=== PATIENT | male | born 1955 | race African-American/Black ===

== ENCOUNTER 2018-04-25 22:54 | Inpatient (IN) | payer MEDICAID ==
[~2018-04-25] VITALS: Ht 167.6 cm; Wt 58.3 kg
[2018-04-25] MEDS ORDERED: ASPIRIN 81MG TABLET PO ONE (23:45)
[2018-04-26] VITALS (12 sets, daily range): BP systolic 117–180; BP diastolic 22–113
[2018-04-26 00:13] LABS: CHLORIDE 103 mEq/L (98-107)
[2018-04-26 00:14] LABS: BASOPHILS % 1.3 % (0.0-2.0); HEMATOCRIT. 36.3 % (42.0-52.0); HEMOGLOBIN. 11.9 g/dL (14.0-18.0); LYMPHOCYTES % 21.7 % (20.0-50.0); MEAN CORPUSCULAR VOLUME 103.5 fL (80.0-94.0); MEAN PLATELET VOLUME 8.7 fl (7.4-10.4); MONOCYTES % 9.6 % (2.0-8.0); NEUTROPHILS % 65.4 % (40.0-76.0); PLATELET 135 x1000/uL (130-400); RED BLOOD CELL COUNT 3.51 mill/uL (4.7-6.1); RED CELL DISTRIBUTION WIDTH 14.7 % (11.6-14.6)
[2018-04-26 00:17] LABS: PARTIAL THROMBOPLASTIN TIME 24.7 sec (23.4-31.0); PROTHROMBIN TIME 10.7 sec (9.4-11.6)
[2018-04-26] MEDS ORDERED: HEPARIN 25,000 UNITS PREMIX 500 ML IV PRN (01:15)
[2018-04-26] MEDS ORDERED: HEPARIN 5000 UNITS/ML VIAL IV PRN ×2 (01:15)
[2018-04-26] MEDS ORDERED: HEPARIN 5000 UNITS/ML VIAL IV SCH (01:15)
[2018-04-26] MEDS ORDERED: CALCIUM CHLORIDE 1GM/10ML SYR IV NR (01:30)
[2018-04-26] MEDS ORDERED: INSULIN REGULAR (HUMULIN R) 300UNITS/3ML IV NR (01:30)
[2018-04-26] MEDS ORDERED: SODIUM BICARBONATE 8.4% 1 MEQ/ML 50ML SYR IV NR (01:30)
[2018-04-26] MEDS ORDERED: DEXTROSE 50% WATER 50ML SYRINGE IV ONE (01:30)
[2018-04-26] MEDS ORDERED: DEXTROSE 50% WATER 50ML SYRINGE IV NR (01:45)
[2018-04-26] MEDS ORDERED: GUAIFENESIN 200MG/10ML SUGAR FREE UDC PO PRN (03:45)
[2018-04-26] MEDS ORDERED: DOCUSATE SODIUM 100MG CAPSULE PO PRN (03:45)
[2018-04-26] MEDS ORDERED: IPRATROPIUM/ALBUTEROL 0.5-3(2.5)MG/3ML NEB INH PRN (03:45)
[2018-04-26] MEDS ORDERED: ONDANSETRON 4MG ODT PO PRN (03:45)
[2018-04-26] MEDS ORDERED: HYDROCODONE/ACETAMINOPHEN 5/325MG TABLET PO PRN (03:45)
[2018-04-26] MEDS ORDERED: ACETAMINOPHEN 325MG TABLET PO PRN (03:45)
[2018-04-26] MEDS ORDERED: CLONIDINE 0.1MG TABLET PO PRN (03:45)
[2018-04-26] MEDS: ASPIRIN 81MG EC TABLET PO SCH (08:17)
[2018-04-26] MEDS: AMLODIPINE 10MG TABLET PO SCH (08:17)
[2018-04-26] MEDS ORDERED: ONDANSETRON HCL 4MG/2ML VIAL IV PRN (08:30)
[2018-04-27] VITALS (11 sets, daily range): BP systolic 129–167; BP diastolic 81–106
[2018-04-27 05:56] LABS: EOSINOPHILS % 4.1 % (0.0-5.0); HEMATOCRIT. 35.9 % (42.0-52.0); HEMOGLOBIN. 11.5 g/dL (14.0-18.0); LYMPHOCYTES % 24.4 % (20.0-50.0); MEAN CORPUSCULAR HEMOGLOBIN 33.1 pg (28.0-32.0); MEAN CORPUSCULAR VOLUME 103.7 fL (80.0-94.0); MEAN PLATELET VOLUME 10.7 fl (7.4-10.4); MONOCYTES % 8.6 % (2.0-8.0); NEUTROPHILS % 61.9 % (40.0-76.0); PLATELET 84 x1000/uL (130-400); RED BLOOD CELL COUNT 3.46 mill/uL (4.7-6.1); RED CELL DISTRIBUTION WIDTH 14.6 % (11.6-14.6)
[2018-04-27 06:04] LABS: CHLORIDE 104 mEq/L (98-107)
[2018-04-27] MEDS: ASPIRIN 81MG EC TABLET PO SCH (08:15)
[2018-04-27] MEDS: AMLODIPINE 10MG TABLET PO SCH (08:16)
[2018-04-27 09:10] LABS: ABSOLUTE BASOPHILS 0.1 x10E3/uL (0.0-0.2); ABSOLUTE EOSINOPHILS 0.1 x10E3/uL (0.0-0.4); ABSOLUTE LYMPHOCYTES 1.6 x10E3/uL (0.7-3.1); ABSOLUTE MONOCYTES 0.5 x10E3/uL (0.1-0.9); ABSOLUTE NEUTROPHILS 4.3 x10E3/uL (1.4-7.0); BASOPHILS 1 % (Not Estab.); HEMATOCRIT 36.8 % (37.5-51.0); HEMOGLOBIN 11.5 g/dL (13.0-17.7); IMMATURE GRANULOCYTES 0 % (Not Estab.); LYMPHOCYTES 24 % (Not Estab.); MEAN CORPUSCULAR HEMOGLOBIN 32.2 pg (26.6-33.0); MEAN CORPUSCULAR HGB CONC. 31.3 g/dL (31.5-35.7); MEAN CORPUSCULAR VOLUME 103 fL (79-97); MONOCYTES 7 % (Not Estab.); NEUTROPHILS 66 % (Not Estab.); PLATELETS 146 x10E3/uL (150-379); RBC 3.57 x10E6/uL (4.14-5.80); RED CELL DISTRIBUTION WIDTH 14.2 % (12.3-15.4); WBC 6.6 x10E3/uL (3.4-10.8)
[2018-04-27] MEDS ORDERED: HEPARIN SODIUM 1,000 UNIT/1ML VIAL IV ONE (09:30)
[2018-04-27 13:11] LABS: % CD 3 POS. LYMPHOCYTES 86.6 % (57.5-86.2); % CD 4 POS. LYMPHOCYTES 26.4 % (30.8-58.5); % CD 8 POS. LYMPH 59.8 % (12.0-35.5); ABSOLUTE CD 3 1386 /uL (622-2402); ABSOLUTE CD 4 HELPER 422 /uL (359-1519); ABSOLUTE CD 8 SUPPRESSOR 957 /uL (109-897); CD4/CD8 RATIO 0.44 (0.92-3.72)
== END 2018-04-27 18:40 | disposition home or self-care (01) | DRG 194 ==
LOC: ER 22:54 → EDBD 04-26 01:18 → 3WST 04-26 01:18 → EDBEDREQTM 04-26 01:21 → EDBEDREQSVC 04-26 01:21 → EDBEDREQ 04-26 01:21 → ENRESERV 04-26 01:33 → 3WST 04-26 04:09
PROVIDERS: ADMIT Hospitalist; ATTEND Hospitalist
PROC: 5A1D70Z Performance of Urinary Filtration, Intermittent, Less than 6 Hours Per Day (ICD-10-PCS; principal; 2018-04-26)
PROC: 5A1D70Z Performance of Urinary Filtration, Intermittent, Less than 6 Hours Per Day (ICD-10-PCS; 2018-04-27)
DX: I13.2 Hypertensive heart and chronic kidney disease with heart failure and with stage 5 chronic kidney disease, or end stage renal disease (principal); I21.4 Non-ST elevation (NSTEMI) myocardial infarction; E43 Unspecified severe protein-calorie malnutrition; I50.33 Acute on chronic diastolic (congestive) heart failure; N18.6 End stage renal disease; E87.5 Hyperkalemia; F19.10 Other psychoactive substance abuse, uncomplicated; J44.9 Chronic obstructive pulmonary disease, unspecified; Z99.2 Dependence on renal dialysis; Z82.49 Family history of ischemic heart disease and other diseases of the circulatory system; Z68.20 Body mass index [BMI] 20.0-20.9, adult; Z91.15 Patient's noncompliance with renal dialysis; Z21 Asymptomatic human immunodeficiency virus [HIV] infection status
CPT/HCPCS: 36415; 71045; 80053; 83605; 83880; 84484; 85025; 85610; 85730; 86359; 86360; 87040; 93005; 93970; 96374; 99291; J1644; J1815; J2405; J3490; J7030; Q0162

== ENCOUNTER 2018-06-22 21:10 | Inpatient (IN) | payer MEDICAID ==
[~2018-06-22] VITALS: Ht 170.2 cm; Wt 69.4 kg
[2018-06-23] VITALS (8 sets, daily range): BP systolic 161–196; BP diastolic 91–122
[2018-06-23 01:28] LABS: BASOPHILS % 0.6 % (0.0-2.0); EOSINOPHILS % 0.5 % (0.0-5.0); HEMATOCRIT. 36.1 % (42.0-52.0); HEMOGLOBIN. 11.6 g/dL (14.0-18.0); MEAN CORPUSCULAR HEMOGLOBIN 32.9 pg (28.0-32.0); MEAN CORPUSCULAR VOLUME 102.9 fL (80.0-94.0); MEAN PLATELET VOLUME 9.2 fl (7.4-10.4); MONOCYTES % 5.7 % (2.0-8.0); NEUTROPHILS % 80.2 % (40.0-76.0); PLATELET 170 x1000/uL (130-400); RED BLOOD CELL COUNT 3.51 mill/uL (4.7-6.1); RED CELL DISTRIBUTION WIDTH 15.3 % (11.6-14.6)
[2018-06-23 01:31] LABS: CHLORIDE 100 mEq/L (98-107)
[2018-06-23 01:40] LABS: ETHANOL BLOOD < 10 mg/dL
[2018-06-23] MEDS ORDERED: SODIUM POLYSTYRENE SULFONATE 15 G/60 ML BOT PO ONE (02:45)
[2018-06-23] MEDS ORDERED: ALBUTEROL (0.083%) 2.5MG/3ML NEB HHN ONE (02:45)
[2018-06-23] MEDS ORDERED: ONDANSETRON HCL 4MG/2ML INJ IV PRN (09:15)
[2018-06-23] MEDS ORDERED: ACETAMINOPHEN 650MG SUPP PR PRN (09:15)
[2018-06-23] MEDS ORDERED: ACETAMINOPHEN 325MG TABLET PO PRN (09:15)
[2018-06-23] MEDS ORDERED: ACETAMINOPHEN 650MG/20.3ML UDC GT PRN (09:15)
[2018-06-23] MEDS ORDERED: IPRATROPIUM/ALBUTEROL 0.5-3(2.5)MG/3ML NEB INH PRN (09:15)
[2018-06-23] MEDS ORDERED: MAGNESIUM/ALUMINUM HYDROXIDE/SIMETHICONE 30ML UDC PO PRN (17:00)
[2018-06-23 17:55] LABS: BG BASE EXCESS -8.5 mmol/L (-2.0-2.0); BG CARBOXYHEMOGLOBIN 0.9 % (0.5-1.5); BG DEOXYHEMOGLOBIN 6.2 % (0.0-5.0); BG HCO3 ACT 19.5 mmol/L (22.0-26.0); BG METHEMOGLOBIN 0.5 % (0.0-1.5); BG OXYGEN SATURATION 93.7 % (92.0-98.5); BG OXYHEMOGLOBIN 92.4 % (94.0-97.0); BG PCO2 50.5 mmHg (35.0-45.0); BG PH 7.204 (7.350-7.450); BG PO2 87.5 mmHg (75.0-100.0); BG SAMPLE SITE RIGHT RADIAL; BG TOTAL HEMOGLOBIN 12.2 g/dL (12.0-18.0); BG VENT MODE NASAL CANNULA
[2018-06-23] MEDS ORDERED: HEPARIN SODIUM 1,000 UNIT/1ML VIAL IV NR (18:45)
[2018-06-23 19:40] LABS: AMMONIA 17 uMol/L (<32); D-DIMER 2.63 mg/L FEU (<0.50); INR 1.1; PROTHROMBIN TIME 10.8 sec (9.1-11.1)
[2018-06-23 19:45] LABS: CREATINE KINASE MB FRACTION 8.3 ng/mL (0.5-3.6)
[2018-06-23 20:54] LABS: HEPATITIS B SURFACE ANTIGEN NEGATIVE
[2018-06-23] MEDS: AMLODIPINE 5MG TABLET PO SCH (21:04)
[2018-06-23] MEDS: LOSARTAN POTASSIUM 50 MG TABLET PO SCH (21:04)
[2018-06-23 21:22] LABS: HEPATITIS B CORE AB IGM NEGATIVE
[2018-06-23 21:23] LABS: HEPATITIS A AB IGM NEGATIVE (NEGATIVE)
[2018-06-23] MEDS: HYDRALAZINE HCL 50MG TABLET PO SCH (23:06)
[2018-06-24] VITALS (18 sets, daily range): BP systolic 116–187; BP diastolic 62–115
[2018-06-24 01:07] LABS: CREATINE KINASE MB FRACTION 6.5 ng/mL (0.5-3.6)
[2018-06-24] MEDS: HYDRALAZINE HCL 50MG TABLET PO SCH ×3 (05:44→22:57)
[2018-06-24 07:12] LABS: CHLORIDE 98 mEq/L (98-107)
[2018-06-24 07:20] LABS: HEMATOCRIT. 35.5 % (42.0-52.0); HEMOGLOBIN. 11.8 g/dL (14.0-18.0); MEAN CORPUSCULAR HEMOGLOBIN 33.7 pg (28.0-32.0); MEAN CORPUSCULAR VOLUME 101.7 fL (80.0-94.0); MEAN PLATELET VOLUME 8.9 fl (7.4-10.4); PLATELET 145 x1000/uL (130-400); RED BLOOD CELL COUNT 3.49 mill/uL (4.7-6.1); RED CELL DISTRIBUTION WIDTH 15.3 % (11.6-14.6)
[2018-06-24 07:23] LABS: HDL CHOLESTEROL 60 mg/dL (40-59); LDL CHOLESTEROL 68 mg/dL (5-100)
[2018-06-24 07:25] LABS: T4 FREE 0.95 ng/dL (0.76-1.46)
[2018-06-24] MEDS: LOSARTAN POTASSIUM 50 MG TABLET PO SCH (08:54)
[2018-06-24] MEDS: AMLODIPINE 5MG TABLET PO SCH ×2 (08:55→20:30)
[2018-06-24 11:42] LABS: PLATELET ESTIMATE NORMAL
[2018-06-24 15:22] LABS: CLARITY URINE CLEAR (CLEAR); COLOR URINE YELLOW (YELLOW); KETONES URINE NEGATIVE (NEGATIVE); LEUKOCYTE ESTERASE URINE NEGATIVE (NEGATIVE); NITRITE URINE NEGATIVE (NEGATIVE); OCCULT BLOOD URINE NEGATIVE (NEGATIVE); PH URINE >=9.0 (4.5-8.0); PROTEIN URINE NEGATIVE (NEGATIVE); SPECIFIC GRAVITY URINE 1.005 (1.005-1.030); UROBILINOGEN URINE 0.2 E.U./dL (0.2-1.0)
[2018-06-24 15:43] LABS: *AMPHETAMINES SCREEN URINE NEGATIVE (NEGATIVE); *BARBITURATES SCREEN URINE NEGATIVE (NEGATIVE); *BENZODIAZEPINES SCREEN URINE NEGATIVE (NEGATIVE); *COCAINE SCREEN URINE PRESUMTIVE POSITIVE (NEGATIVE)
[2018-06-24 15:44] LABS: CANNABINOID URINE SCREEN NEGATIVE (NEGATIVE); METHADONE URINE SCREEN NEGATIVE (NEGATIVE); OPIATES URINE SCREEN NEGATIVE (NEGATIVE); PHENCYCLIDINE URINE SCREEN NEGATIVE (NEGATIVE)
[2018-06-25] VITALS (14 sets, daily range): BP systolic 104–171; BP diastolic 51–93
[2018-06-25] MEDS: HYDRALAZINE HCL 50MG TABLET PO SCH ×3 (06:07→22:21)
[2018-06-25 07:50] LABS: HEMATOCRIT. 34.9 % (42.0-52.0); HEMOGLOBIN. 11.3 g/dL (14.0-18.0); MEAN CORPUSCULAR HEMOGLOBIN 32.9 pg (28.0-32.0); MEAN CORPUSCULAR VOLUME 101.8 fL (80.0-94.0); MEAN PLATELET VOLUME 8.4 fl (7.4-10.4); PLATELET 127 x1000/uL (130-400); RED BLOOD CELL COUNT 3.43 mill/uL (4.7-6.1); RED CELL DISTRIBUTION WIDTH 15.2 % (11.6-14.6)
[2018-06-25] MEDS: AMLODIPINE 5MG TABLET PO SCH ×3 (08:00→22:20)
[2018-06-25] MEDS: LOSARTAN POTASSIUM 50 MG TABLET PO SCH (08:00)
[2018-06-25 09:06] LABS: ABSOLUTE LYMPHOCYTES 1.2 x10E3/uL (0.7-3.1); ABSOLUTE MONOCYTES 0.5 x10E3/uL (0.1-0.9); ABSOLUTE NEUTROPHILS 11.7 x10E3/uL (1.4-7.0); BASOPHILS 0 % (Not Estab.); HEMOGLOBIN 11.2 g/dL (13.0-17.7); IMMATURE GRANULOCYTES 0 % (Not Estab.); LYMPHOCYTES 9 % (Not Estab.); MEAN CORPUSCULAR HEMOGLOBIN 32.2 pg (26.6-33.0); MEAN CORPUSCULAR VOLUME 101 fL (79-97); MONOCYTES 4 % (Not Estab.); NEUTROPHILS 87 % (Not Estab.); PLATELETS 142 x10E3/uL (150-379); RBC 3.48 x10E6/uL (4.14-5.80); RED CELL DISTRIBUTION WIDTH 14.6 % (12.3-15.4); WBC 13.5 x10E3/uL (3.4-10.8)
[2018-06-25 09:22] LABS: PHOSPHORUS 7.4 mg/dL (2.5-4.9)
[2018-06-25] MEDS: LEVOTHYROXINE SODIUM 25MCG TABLET PO SCH (10:28)
[2018-06-25 15:52] LABS: PLATELET ESTIMATE SLIGHTLY DECREASED
[2018-06-25 22:57] LABS: CLARITY URINE CLEAR (CLEAR); COLOR URINE YELLOW (YELLOW); KETONES URINE NEGATIVE (NEGATIVE); LEUKOCYTE ESTERASE URINE NEGATIVE (NEGATIVE); NITRITE URINE NEGATIVE (NEGATIVE); OCCULT BLOOD URINE NEGATIVE (NEGATIVE); PH URINE >=9.0 (4.5-8.0); PROTEIN URINE NEGATIVE (NEGATIVE); SPECIFIC GRAVITY URINE 1.005 (1.005-1.030); UROBILINOGEN URINE 0.2 E.U./dL (0.2-1.0)
[2018-06-26] VITALS (12 sets, daily range): BP systolic 98–162; BP diastolic 49–80
[2018-06-26] MEDS: LEVOTHYROXINE SODIUM 25MCG TABLET PO SCH (06:28)
[2018-06-26] MEDS: HYDRALAZINE HCL 50MG TABLET PO SCH ×3 (06:28→21:29)
[2018-06-26 06:47] LABS: HEMATOCRIT. 33.7 % (42.0-52.0); HEMOGLOBIN. 10.8 g/dL (14.0-18.0); MEAN CORPUSCULAR HEMOGLOBIN 33.3 pg (28.0-32.0); MEAN CORPUSCULAR VOLUME 103.6 fL (80.0-94.0); MEAN PLATELET VOLUME 9.7 fl (7.4-10.4); PLATELET 91 x1000/uL (130-400); RED BLOOD CELL COUNT 3.25 mill/uL (4.7-6.1); RED CELL DISTRIBUTION WIDTH 15.6 % (11.6-14.6)
[2018-06-26] MEDS: LOSARTAN POTASSIUM 50 MG TABLET PO SCH (08:23)
[2018-06-26] MEDS: CALCIUM ACETATE 667MG CAPSULE PO SCH ×3 (08:28→16:58)
[2018-06-26] MEDS: SEVELAMER CARBONATE 800 MG TABLET PO SCH ×3 (08:28→16:58)
[2018-06-26] MEDS: AMLODIPINE 5MG TABLET PO SCH ×2 (08:28→21:29)
[2018-06-26] MEDS: FOLIC ACID/VITAMIN B COMP W-C TABLET PO SCH (08:28)
[2018-06-26 09:06] LABS: % CD 3 POS. LYMPHOCYTES 91.4 % (57.5-86.2); % CD 4 POS. LYMPHOCYTES 25.6 % (30.8-58.5); % CD 8 POS. LYMPH 65.3 % (12.0-35.5); ABSOLUTE CD 3 1097 /uL (622-2402); ABSOLUTE CD 4 HELPER 307 /uL (359-1519); ABSOLUTE CD 8 SUPPRESSOR 784 /uL (109-897); CD4/CD8 RATIO 0.39 (0.92-3.72)
[2018-06-26 11:06] LABS: PLATELET ESTIMATE SLIGHTLY DECREASED
[2018-06-26 12:35] LABS: BG DEOXYHEMOGLOBIN 6.6 % (0.0-5.0); BG FRACTION INSPIRED OXYGEN 32; BG HCO3 ACT 26.8 mmol/L (22.0-26.0); BG METHEMOGLOBIN 0.2 % (0.0-1.5); BG OXYGEN SATURATION 93.3 % (92.0-98.5); BG OXYHEMOGLOBIN 92.2 % (94.0-97.0); BG PH 7.314 (7.350-7.450); BG PO2 75.7 mmHg (75.0-100.0); BG SAMPLE SITE RIGHT RADIAL; BG TOTAL HEMOGLOBIN 11.3 g/dL (12.0-18.0); BG VENT MODE NASAL CANNULA
[2018-06-26] MEDS ORDERED: VANCOMYCIN 1500MG in DEXTROSE 5% WATER 250ML IV NR (14:00)
[2018-06-26] MEDS: BUDESONIDE 0.5MG/2ML NEB HHN SCH (20:41)
[2018-06-26] MEDS: IPRATROPIUM/ALBUTEROL 0.5-3(2.5)MG/3ML NEB HHN SCH (20:41)
[2018-06-27] VITALS (12 sets, daily range): BP systolic 91–132; BP diastolic 41–83
[2018-06-27] MEDS: IPRATROPIUM/ALBUTEROL 0.5-3(2.5)MG/3ML NEB HHN SCH ×2 (01:07→21:44)
[2018-06-27] MEDS: HYDRALAZINE HCL 50MG TABLET PO SCH ×3 (06:00→22:00)
[2018-06-27] MEDS: LEVOTHYROXINE SODIUM 25MCG TABLET PO SCH (06:20)
[2018-06-27] MEDS: SEVELAMER CARBONATE 800 MG TABLET PO SCH ×3 (07:20→16:35)
[2018-06-27] MEDS: CALCIUM ACETATE 667MG CAPSULE PO SCH ×3 (07:20→16:35)
[2018-06-27 07:31] LABS: PHOSPHORUS 8.5 mg/dL (2.5-4.9)
[2018-06-27 07:47] LABS: HEMATOCRIT. 33.2 % (42.0-52.0); HEMOGLOBIN. 10.8 g/dL (14.0-18.0); MEAN CORPUSCULAR HEMOGLOBIN 33.3 pg (28.0-32.0); MEAN CORPUSCULAR VOLUME 102.3 fL (80.0-94.0); RED BLOOD CELL COUNT 3.25 mill/uL (4.7-6.1); RED CELL DISTRIBUTION WIDTH 15.2 % (11.6-14.6)
[2018-06-27 07:57] LABS: BG BASE EXCESS -4.1 mmol/L (-2.0-2.0); BG CARBOXYHEMOGLOBIN 1.3 % (0.5-1.5); BG DEOXYHEMOGLOBIN 7.1 % (0.0-5.0); BG FRACTION INSPIRED OXYGEN 28; BG HCO3 ACT 22.1 mmol/L (22.0-26.0); BG METHEMOGLOBIN 0.3 % (0.0-1.5); BG OXYGEN SATURATION 92.8 % (92.0-98.5); BG OXYHEMOGLOBIN 91.3 % (94.0-97.0); BG PCO2 44.4 mmHg (35.0-45.0); BG PH 7.314 (7.350-7.450); BG PO2 73.5 mmHg (75.0-100.0); BG SAMPLE SITE RIGHT RADIAL; BG TOTAL HEMOGLOBIN 11.7 g/dL (12.0-18.0); BG VENT MODE NASAL CANNULA
[2018-06-27] MEDS: LOSARTAN POTASSIUM 50 MG TABLET PO SCH (08:24)
[2018-06-27] MEDS: AMLODIPINE 5MG TABLET PO SCH ×2 (08:25→21:00)
[2018-06-27] MEDS: FOLIC ACID/VITAMIN B COMP W-C TABLET PO SCH (08:26)
[2018-06-27] MEDS ORDERED: LIDOCAINE HCL 1% 10 MG/ML 10ML VIAL ONE (11:11)
[2018-06-27 11:20] LABS: PLATELET 64 x1000/uL (130-400)
[2018-06-27 11:24] LABS: PLATELET ESTIMATE DECREASED
[2018-06-27] MEDS ORDERED: VANCOMYCIN 1 G PREMIX 200 ML IV NR (15:00)
[2018-06-27] MEDS ORDERED: HYDRALAZINE 20MG/ML VIAL IV PRN (15:15)
[2018-06-27 16:47] LABS: AMMONIA 11 uMol/L (<32)
[2018-06-27 16:59] LABS: T4 FREE 1.11 ng/dL (0.76-1.46)
[2018-06-27 17:10] LABS: FOLIC ACID (FOLATE) SERUM 13.9 ng/mL (>5.38)
[2018-06-27] MEDS: BUDESONIDE 0.5MG/2ML NEB HHN SCH (21:44)
[2018-06-28] VITALS (19 sets, daily range): BP systolic 97–140; BP diastolic 59–93
[2018-06-28] MEDS: IPRATROPIUM/ALBUTEROL 0.5-3(2.5)MG/3ML NEB HHN SCH ×4 (01:50→21:06)
[2018-06-28] MEDS: HYDRALAZINE HCL 50MG TABLET PO SCH ×3 (06:00→22:00)
[2018-06-28] MEDS: LEVOTHYROXINE SODIUM 25MCG TABLET PO SCH (06:32)
[2018-06-28 06:38] LABS: HEMATOCRIT. 35.9 % (42.0-52.0); HEMOGLOBIN. 11.6 g/dL (14.0-18.0); MEAN CORPUSCULAR HEMOGLOBIN 32.9 pg (28.0-32.0); MEAN CORPUSCULAR VOLUME 101.8 fL (80.0-94.0); MEAN PLATELET VOLUME 9.2 fl (7.4-10.4); PLATELET 58 x1000/uL (130-400); RED BLOOD CELL COUNT 3.53 mill/uL (4.7-6.1); RED CELL DISTRIBUTION WIDTH 15.2 % (11.6-14.6)
[2018-06-28] MEDS: CALCIUM ACETATE 667MG CAPSULE PO SCH ×3 (07:20→17:04)
[2018-06-28] MEDS: SEVELAMER CARBONATE 800 MG TABLET PO SCH ×3 (07:20→17:04)
[2018-06-28] MEDS: BUDESONIDE 0.5MG/2ML NEB HHN SCH ×2 (08:33→21:05)
[2018-06-28] MEDS: AMLODIPINE 5MG TABLET PO SCH ×2 (09:00→21:00)
[2018-06-28] MEDS: FOLIC ACID/VITAMIN B COMP W-C TABLET PO SCH (09:00)
[2018-06-28] MEDS: LOSARTAN POTASSIUM 50 MG TABLET PO SCH (09:00)
[2018-06-28] MEDS ORDERED: DEXTROSE 50% WATER 50ML SYRINGE IV NR (09:09)
[2018-06-28] MEDS ORDERED: SODIUM BICARBONATE 8.4% 1 MEQ/ML 50ML SYR IV NR (09:15)
[2018-06-28] MEDS ORDERED: CALCIUM GLUCONATE 1,000 MG in DEXT 5% WATER 90 ML IV NR (10:00)
[2018-06-28] MEDS ORDERED: SODIUM POLYSTYRENE SULFONATE 15 G/60 ML BOT PO NR (10:00)
[2018-06-28] MEDS ORDERED: INSULIN REGULAR (HUMULIN R) UD 100 UNITS/ML SYR IV NR (10:00)
[2018-06-28] MEDS: DEXT 5%/0.45% NACL 1000ML 1,000 ML IV SCH (11:10)
[2018-06-28 11:37] LABS: PLATELET ESTIMATE DECREASED
[2018-06-29] VITALS (12 sets, daily range): BP systolic 109–137; BP diastolic 70–84
[2018-06-29] MEDS: IPRATROPIUM/ALBUTEROL 0.5-3(2.5)MG/3ML NEB HHN SCH ×4 (01:15→21:30)
[2018-06-29] MEDS: HYDRALAZINE HCL 50MG TABLET PO SCH (06:00)
[2018-06-29] MEDS: LEVOTHYROXINE SODIUM 25MCG TABLET PO SCH (06:27)
[2018-06-29] MEDS: CALCIUM ACETATE 667MG CAPSULE PO SCH ×3 (07:20→16:14)
[2018-06-29] MEDS: SEVELAMER CARBONATE 800 MG TABLET PO SCH ×3 (07:20→16:14)
[2018-06-29 08:11] LABS: HEMATOCRIT. 34.8 % (42.0-52.0); HEMOGLOBIN. 11.4 g/dL (14.0-18.0); MEAN CORPUSCULAR HEMOGLOBIN 33.3 pg (28.0-32.0); MEAN CORPUSCULAR VOLUME 101.5 fL (80.0-94.0); RED BLOOD CELL COUNT 3.43 mill/uL (4.7-6.1); RED CELL DISTRIBUTION WIDTH 15.3 % (11.6-14.6)
[2018-06-29] MEDS: BUDESONIDE 0.5MG/2ML NEB HHN SCH ×2 (08:36→21:30)
[2018-06-29] MEDS: LOSARTAN POTASSIUM 50 MG TABLET PO SCH (09:00)
[2018-06-29] MEDS ORDERED: SORBITOL 70% SOLN 30ML PO SCH (09:00)
[2018-06-29] MEDS: FOLIC ACID/VITAMIN B COMP W-C TABLET PO SCH (09:00)
[2018-06-29] MEDS ORDERED: SORBITOL 70% SOLN 30ML PO ONE (09:00)
[2018-06-29] MEDS: AMLODIPINE 5MG TABLET PO SCH (09:00)
[2018-06-29] MEDS ORDERED: BISACODYL 10MG SUPP PR SCH (09:00)
[2018-06-29] MEDS: DEXT 5%/0.45% NACL 1000ML 1,000 ML IV SCH (09:47)
[2018-06-29 09:54] LABS: PLATELET 42 x1000/uL (130-400)
[2018-06-29 09:56] LABS: PLATELET ESTIMATE MARKEDLY DECREASED
[2018-06-29] MEDS: HYDRALAZINE 20MG/ML VIAL IV SCH ×3 (12:00→23:54)
[2018-06-29] MEDS: BISACODYL 10MG SUPP PR SCH ×3 (13:30→15:30)
[2018-06-29] MEDS ORDERED: HEPARIN SODIUM 1,000 UNIT/1ML VIAL IV NR (22:15)
[2018-06-30] VITALS (12 sets, daily range): BP systolic 107–128; BP diastolic 68–87
[2018-06-30] MEDS: IPRATROPIUM/ALBUTEROL 0.5-3(2.5)MG/3ML NEB HHN SCH ×4 (02:30→21:10)
[2018-06-30] MEDS: DEXT 5%/0.45% NACL 1000ML 1,000 ML IV SCH (04:32)
[2018-06-30] MEDS: HYDRALAZINE 20MG/ML VIAL IV SCH ×4 (06:00→23:18)
[2018-06-30] MEDS ORDERED: VANCOMYCIN 1 G PREMIX 200 ML IV NR (06:00)
[2018-06-30] MEDS: LEVOTHYROXINE SODIUM 25MCG TABLET PO SCH (06:25)
[2018-06-30 06:43] LABS: HEMATOCRIT. 33.7 % (42.0-52.0); HEMOGLOBIN. 11.1 g/dL (14.0-18.0); MEAN CORPUSCULAR HEMOGLOBIN 33.2 pg (28.0-32.0); MEAN CORPUSCULAR VOLUME 100.8 fL (80.0-94.0); MEAN PLATELET VOLUME 11.1 fl (7.4-10.4); RED BLOOD CELL COUNT 3.35 mill/uL (4.7-6.1); RED CELL DISTRIBUTION WIDTH 15.2 % (11.6-14.6)
[2018-06-30] MEDS: SEVELAMER CARBONATE 800 MG TABLET PO SCH ×4 (07:20→17:20)
[2018-06-30] MEDS: CALCIUM ACETATE 667MG CAPSULE PO SCH ×4 (07:20→17:20)
[2018-06-30 08:15] LABS: PLATELET 44 x1000/uL (130-400)
[2018-06-30] MEDS: FOLIC ACID/VITAMIN B COMP W-C TABLET PO SCH (09:00)
[2018-06-30 10:28] LABS: PLATELET ESTIMATE MARKEDLY DECREASED
[2018-07-01] VITALS (11 sets, daily range): BP systolic 106–129; BP diastolic 70–92
[2018-07-01] MEDS: IPRATROPIUM/ALBUTEROL 0.5-3(2.5)MG/3ML NEB HHN SCH
[2018-07-01] MEDS: HYDRALAZINE 20MG/ML VIAL IV SCH ×2 (06:00→12:00)
[2018-07-01] MEDS: DEXT 5%/0.45% NACL 1000ML 1,000 ML IV SCH (06:29)
[2018-07-01] MEDS: LEVOTHYROXINE SODIUM 25MCG TABLET PO SCH (06:29)
[2018-07-01] MEDS: SEVELAMER CARBONATE 800 MG TABLET PO SCH ×3 (06:29→17:45)
[2018-07-01] MEDS: CALCIUM ACETATE 667MG CAPSULE PO SCH ×3 (06:36→17:45)
[2018-07-01 06:37] LABS: HEMATOCRIT. 33.4 % (42.0-52.0); HEMOGLOBIN. 10.9 g/dL (14.0-18.0); MEAN CORPUSCULAR HEMOGLOBIN 32.7 pg (28.0-32.0); MEAN CORPUSCULAR VOLUME 100.3 fL (80.0-94.0); RED BLOOD CELL COUNT 3.33 mill/uL (4.7-6.1); RED CELL DISTRIBUTION WIDTH 15.4 % (11.6-14.6)
[2018-07-01 07:39] LABS: PLATELET 49 x1000/uL (130-400)
[2018-07-01] MEDS: FOLIC ACID/VITAMIN B COMP W-C TABLET PO SCH (09:36)
[2018-07-01] MEDS: HYDROCODONE/ACETAMINOPHEN 5/325MG TABLET PO PRN (13:08)
[2018-07-01 14:00] LABS: PLATELET ESTIMATE MARKEDLY DECREASED
[2018-07-02] VITALS (23 sets, daily range): BP systolic 92–131; BP diastolic 49–82
[2018-07-02] MEDS: HYDROCODONE/ACETAMINOPHEN 5/325MG TABLET PO PRN ×3 (02:38→21:32)
[2018-07-02] MEDS: DEXT 5%/0.45% NACL 1000ML 1,000 ML IV SCH (02:39)
[2018-07-02] MEDS: HYDRALAZINE 20MG/ML VIAL IV SCH ×4 (05:36→18:00)
[2018-07-02] MEDS: LEVOTHYROXINE SODIUM 25MCG TABLET PO SCH (06:01)
[2018-07-02 07:12] LABS: HEMATOCRIT. 34.1 % (42.0-52.0); HEMOGLOBIN. 10.9 g/dL (14.0-18.0); MEAN CORPUSCULAR HEMOGLOBIN 32.1 pg (28.0-32.0); MEAN CORPUSCULAR VOLUME 100.4 fL (80.0-94.0); MEAN PLATELET VOLUME 11.8 fl (7.4-10.4); PLATELET 70 x1000/uL (130-400); RED BLOOD CELL COUNT 3.39 mill/uL (4.7-6.1); RED CELL DISTRIBUTION WIDTH 14.8 % (11.6-14.6)
[2018-07-02 07:29] LABS: CHLORIDE 104 mEq/L (98-107)
[2018-07-02] MEDS: CALCIUM ACETATE 667MG CAPSULE PO SCH ×3 (08:39→17:53)
[2018-07-02] MEDS: SEVELAMER CARBONATE 800 MG TABLET PO SCH ×3 (08:39→17:53)
[2018-07-02] MEDS: FOLIC ACID/VITAMIN B COMP W-C TABLET PO SCH (08:39)
[2018-07-02] MEDS: IPRATROPIUM/ALBUTEROL 0.5-3(2.5)MG/3ML NEB HHN SCH ×2 (09:05→20:20)
[2018-07-02 09:49] LABS: PLATELET ESTIMATE DECREASED
[2018-07-02 20:07] LABS: BG BASE EXCESS -6.8 mmol/L (-2.0-2.0); BG DEOXYHEMOGLOBIN 10.2 % (0.0-5.0); BG FRACTION INSPIRED OXYGEN 100; BG HCO3 ACT 22.2 mmol/L (22.0-26.0); BG METHEMOGLOBIN 0.1 % (0.0-1.5); BG OXYGEN SATURATION 89.7 % (92.0-98.5); BG OXYHEMOGLOBIN 88.7 % (94.0-97.0); BG PH 7.172 (7.350-7.450); BG PO2 76.3 mmHg (75.0-100.0); BG SAMPLE SITE RIGHT BRACHIAL; BG TOTAL HEMOGLOBIN 11.8 g/dL (12.0-18.0); BG VENT MODE MASK - NRB
[2018-07-02 21:38] LABS: HEMATOCRIT. 34.5 % (42.0-52.0); HEMOGLOBIN. 10.8 g/dL (14.0-18.0); MEAN CORPUSCULAR HEMOGLOBIN 32.1 pg (28.0-32.0); MEAN PLATELET VOLUME 11.3 fl (7.4-10.4); PLATELET 85 x1000/uL (130-400); RED BLOOD CELL COUNT 3.38 mill/uL (4.7-6.1); RED CELL DISTRIBUTION WIDTH 15.6 % (11.6-14.6)
[2018-07-02 23:27] LABS: BG BASE EXCESS -3.5 mmol/L (-2.0-2.0); BG CARBOXYHEMOGLOBIN 0.4 % (0.5-1.5); BG DEOXYHEMOGLOBIN 49.1 % (0.0-5.0); BG FRACTION INSPIRED OXYGEN 70; BG HCO3 ACT 23.8 mmol/L (22.0-26.0); BG METHEMOGLOBIN 0.1 % (0.0-1.5); BG OXYGEN SATURATION 50.7 % (92.0-98.5); BG OXYHEMOGLOBIN 50.4 % (94.0-97.0); BG PCO2 53.2 mmHg (35.0-45.0); BG PH 7.268 (7.350-7.450); BG SAMPLE SITE RIGHT BRACHIAL; BG VENT MODE MASK - BIPAP; BG VENT RATE 22 set
[2018-07-03] VITALS (126 sets, daily range): BP systolic 67–139; BP diastolic 23–111
[2018-07-03 01:17] LABS: BG BASE EXCESS -7.6 mmol/L (-2.0-2.0); BG BILEVEL POS AIRWAY PRESSURE 15/5; BG CARBOXYHEMOGLOBIN 0.3 % (0.5-1.5); BG DEOXYHEMOGLOBIN 2.5 % (0.0-5.0); BG FRACTION INSPIRED OXYGEN 100; BG HCO3 ACT 16.9 mmol/L (22.0-26.0); BG METHEMOGLOBIN 0.1 % (0.0-1.5); BG OXYGEN SATURATION 97.5 % (92.0-98.5); BG OXYHEMOGLOBIN 97.1 % (94.0-97.0); BG PCO2 31.1 mmHg (35.0-45.0); BG PH 7.353 (7.350-7.450); BG PO2 109.9 mmHg (75.0-100.0); BG SAMPLE SITE RIGHT RADIAL; BG TOTAL HEMOGLOBIN 10.7 g/dL (12.0-18.0); BG VENT MODE MASK - BIPAP; BG VENT RATE 26 set
[2018-07-03] MEDS: IPRATROPIUM/ALBUTEROL 0.5-3(2.5)MG/3ML NEB HHN SCH ×4 (01:31→21:06)
[2018-07-03 04:18] LABS: PLATELET ESTIMATE DECREASED
[2018-07-03] MEDS: HYDRALAZINE 20MG/ML VIAL IV SCH ×5 (06:00→23:15)
[2018-07-03] MEDS: LEVOTHYROXINE SODIUM 25MCG TABLET PO SCH ×2 (06:30→06:36)
[2018-07-03] MEDS: SEVELAMER CARBONATE 800 MG TABLET PO SCH ×4 (06:40→17:00)
[2018-07-03] MEDS: HYDROCODONE/ACETAMINOPHEN 5/325MG TABLET PO PRN ×2 (06:40→07:29)
[2018-07-03] MEDS: CALCIUM ACETATE 667MG CAPSULE PO SCH ×4 (06:41→17:45)
[2018-07-03] MEDS ORDERED: SODIUM BICARBONATE 8.4% 1 MEQ/ML 50ML SYR IV NR (07:30)
[2018-07-03] MEDS ORDERED: INSULIN REGULAR (HUMULIN R) 300UNITS/3ML IV NR (07:30)
[2018-07-03] MEDS ORDERED: DEXTROSE 50% WATER 50ML SYRINGE IV NR (07:30)
[2018-07-03 08:27] LABS: BG BASE EXCESS -7.4 mmol/L (-2.0-2.0); BG BILEVEL POS AIRWAY PRESSURE 13/5; BG CARBOXYHEMOGLOBIN 0.3 % (0.5-1.5); BG DEOXYHEMOGLOBIN 1.8 % (0.0-5.0); BG FRACTION INSPIRED OXYGEN 100; BG HCO3 ACT 20.2 mmol/L (22.0-26.0); BG METHEMOGLOBIN 0.3 % (0.0-1.5); BG OXYGEN SATURATION 98.2 % (92.0-98.5); BG OXYHEMOGLOBIN 97.6 % (94.0-97.0); BG PCO2 50.4 mmHg (35.0-45.0); BG PH 7.221 (7.350-7.450); BG PO2 138.3 mmHg (75.0-100.0); BG SAMPLE SITE RIGHT BRACHIAL; BG TOTAL HEMOGLOBIN 10.8 g/dL (12.0-18.0); BG VENT MODE MASK - BIPAP
[2018-07-03] MEDS: FOLIC ACID/VITAMIN B COMP W-C TABLET PO SCH (09:00)
[2018-07-03 09:02] LABS: HEMATOCRIT. 30.7 % (42.0-52.0); HEMOGLOBIN. 9.6 g/dL (14.0-18.0); MEAN CORPUSCULAR HEMOGLOBIN 32.2 pg (28.0-32.0); MEAN CORPUSCULAR VOLUME 103.3 fL (80.0-94.0); MEAN PLATELET VOLUME 11.6 fl (7.4-10.4); PLATELET 100 x1000/uL (130-400); RED BLOOD CELL COUNT 2.97 mill/uL (4.7-6.1); RED CELL DISTRIBUTION WIDTH 15.2 % (11.6-14.6)
[2018-07-03 09:54] LABS: PLATELET ESTIMATE DECREASED
[2018-07-03] MEDS ORDERED: NOREPINEPHRINE 4 MG in DEXT 5% WATER 250 ML IV PRN ×2 (10:07→10:44)
[2018-07-03] MEDS ORDERED: PHENYLEPHRINE 20 MG in DEXT 5% WATER 248 ML IV PRN (12:15)
[2018-07-03] MEDS: PHENYLEPHRINE 80 MG in DEXT 5% WATER 492 ML IV PRN ×2 (13:00→23:15)
[2018-07-03] MEDS: NOREPINEPHRINE 8 MG in DEXT 5% WATER 242 ML IV PRN ×2 (13:05→17:50)
[2018-07-03] MEDS: DOXYCYCLINE 100 MG in DEXT 5% WATER 100 ML IV SCH (13:30)
[2018-07-03] MEDS: MIDODRINE HCL 5MG TABLET PO SCH ×2 (13:30→17:45)
[2018-07-03] MEDS: PROPOFOL 10MG/ML 100ML 100 ML IV PRN ×2 (14:00→20:03)
[2018-07-03] MEDS: DAPTOMYCIN 300 MG in SODIUM CHLORIDE 0.9% 50 ML IV SCH (15:00)
[2018-07-03] MEDS ORDERED: ETOMIDATE 2MG/ML 10ML VIAL IV ONE (15:02)
[2018-07-03] MEDS ORDERED: SUCCINYLCHOLINE CHLORIDE 200MG/10ML IV ONE (15:02)
[2018-07-03 16:29] LABS: BG BASE EXCESS -1.6 mmol/L (-2.0-2.0); BG CARBOXYHEMOGLOBIN 0.3 % (0.5-1.5); BG DEOXYHEMOGLOBIN 1.4 % (0.0-5.0); BG FRACTION INSPIRED OXYGEN 100; BG HCO3 ACT 23.7 mmol/L (22.0-26.0); BG METHEMOGLOBIN 0.1 % (0.0-1.5); BG OXYGEN SATURATION 98.6 % (92.0-98.5); BG OXYHEMOGLOBIN 98.2 % (94.0-97.0); BG PCO2 42.6 mmHg (35.0-45.0); BG PH 7.364 (7.350-7.450); BG PO2 128.2 mmHg (75.0-100.0); BG SAMPLE SITE RIGHT RADIAL; BG TIDAL VOLUME(mL) 500 mL; BG TOTAL HEMOGLOBIN 10.6 g/dL (12.0-18.0); BG VENT MODE VENT - A/C; BG VENT RATE 16 set
[2018-07-03] MEDS ORDERED: VANCOMYCIN 750 MG PREMIX 150 ML IV SCH (18:00)
[2018-07-03] MEDS ORDERED: PHENYLEPHRINE 80 MG in DEXT 5% WATER 492 ML IV PRN (20:00)
[2018-07-04] VITALS (86 sets, daily range): BP systolic 83–124; BP diastolic 39–94
[2018-07-04] MEDS: DOXYCYCLINE 100 MG in DEXT 5% WATER 100 ML IV SCH ×2 (00:09→13:45)
[2018-07-04] MEDS: NOREPINEPHRINE 8 MG in DEXT 5% WATER 242 ML IV PRN (00:10)
[2018-07-04] MEDS: IPRATROPIUM/ALBUTEROL 0.5-3(2.5)MG/3ML NEB HHN SCH ×5 (01:37→20:43)
[2018-07-04] MEDS: HYDRALAZINE 20MG/ML VIAL IV SCH ×3 (05:48→18:00)
[2018-07-04] MEDS: PROPOFOL 10MG/ML 100ML 100 ML IV PRN (05:48)
[2018-07-04] MEDS: CALCIUM ACETATE 667MG CAPSULE PO SCH ×3 (06:01→18:00)
[2018-07-04] MEDS: SEVELAMER CARBONATE 800 MG TABLET PO SCH ×3 (06:01→17:00)
[2018-07-04] MEDS: LEVOTHYROXINE SODIUM 25MCG TABLET PO SCH (06:02)
[2018-07-04 06:08] LABS: BASOPHILS % 0.1 % (0.0-2.0); EOSINOPHILS % 0.3 % (0.0-5.0); HEMATOCRIT. 29.2 % (42.0-52.0); HEMOGLOBIN. 9.6 g/dL (14.0-18.0); LYMPHOCYTES % 7.7 % (20.0-50.0); MEAN CORPUSCULAR VOLUME 99.9 fL (80.0-94.0); MEAN PLATELET VOLUME 11.6 fl (7.4-10.4); MONOCYTES % 3.7 % (2.0-8.0); NEUTROPHILS % 88.2 % (40.0-76.0); PLATELET 68 x1000/uL (130-400); RED BLOOD CELL COUNT 2.93 mill/uL (4.7-6.1)
[2018-07-04] MEDS: FOLIC ACID/VITAMIN B COMP W-C TABLET PO SCH (09:23)
[2018-07-04] MEDS: MIDODRINE HCL 5MG TABLET PO SCH ×3 (09:23→18:00)
[2018-07-04 10:40] LABS: BG BASE EXCESS -2.4 mmol/L (-2.0-2.0); BG CARBOXYHEMOGLOBIN 0.1 % (0.5-1.5); BG DEOXYHEMOGLOBIN 3.1 % (0.0-5.0); BG HCO3 ACT 21.4 mmol/L (22.0-26.0); BG METHEMOGLOBIN 0.3 % (0.0-1.5); BG OXYGEN SATURATION 96.9 % (92.0-98.5); BG OXYHEMOGLOBIN 96.5 % (94.0-97.0); BG PO2 99.2 mmHg (75.0-100.0); BG SAMPLE SITE RIGHT BRACHIAL; BG TIDAL VOLUME(mL) 500 mL; BG TOTAL HEMOGLOBIN 9.6 g/dL (12.0-18.0); BG VENT MODE VENT - A/C; BG VENT RATE 14 set
[2018-07-04] MEDS ORDERED: PROPOFOL 10MG/ML 100ML 100 ML IV PRN (11:15)
[2018-07-04] MEDS ORDERED: MAGNESIUM/ALUMINUM HYDROXIDE/SIMETHICONE 30ML UDC PO PRN (11:15)
[2018-07-04] MEDS: PHENYLEPHRINE 80 MG in DEXT 5% WATER 492 ML IV PRN (12:12)
[2018-07-04] MEDS ORDERED: LORAZEPAM 2MG/ML CPJ IV PRN (15:30)
[2018-07-04] MEDS: FENTANYL CITRATE/PF 500 MCG in SODIUM CHLORIDE 0.9% 40 ML IV PRN (17:09)
[2018-07-05] VITALS (95 sets, daily range): BP systolic 84–123; BP diastolic 46–88
[2018-07-05] MEDS: DOXYCYCLINE 100 MG in DEXT 5% WATER 100 ML IV SCH ×2 (01:25→13:50)
[2018-07-05] MEDS: IPRATROPIUM/ALBUTEROL 0.5-3(2.5)MG/3ML NEB HHN SCH ×3 (01:36→20:45)
[2018-07-05] MEDS: PHENYLEPHRINE 80 MG in DEXT 5% WATER 492 ML IV PRN ×4 (02:08→22:30)
[2018-07-05] MEDS: FENTANYL CITRATE/PF 500 MCG in SODIUM CHLORIDE 0.9% 40 ML IV PRN ×3 (05:40→22:47)
[2018-07-05] MEDS: HYDRALAZINE 20MG/ML VIAL IV SCH ×4 (05:48→17:49)
[2018-07-05 06:25] LABS: HEMATOCRIT. 26.8 % (42.0-52.0); HEMOGLOBIN. 8.7 g/dL (14.0-18.0); MEAN CORPUSCULAR HEMOGLOBIN 32.3 pg (28.0-32.0); MEAN CORPUSCULAR VOLUME 99.8 fL (80.0-94.0); MEAN PLATELET VOLUME 11.8 fl (7.4-10.4); PLATELET 129 x1000/uL (130-400); RED BLOOD CELL COUNT 2.68 mill/uL (4.7-6.1)
[2018-07-05] MEDS: LEVOTHYROXINE SODIUM 25MCG TABLET PO SCH (06:48)
[2018-07-05] MEDS: SEVELAMER CARBONATE 800 MG TABLET PO SCH ×3 (06:48→17:48)
[2018-07-05] MEDS: CALCIUM ACETATE 667MG CAPSULE PO SCH ×3 (06:48→17:48)
[2018-07-05 08:27] LABS: BG BASE EXCESS -3.8 mmol/L (-2.0-2.0); BG CARBOXYHEMOGLOBIN 0.9 % (0.5-1.5); BG DEOXYHEMOGLOBIN 7.8 % (0.0-5.0); BG FRACTION INSPIRED OXYGEN 60; BG HCO3 ACT 20.4 mmol/L (22.0-26.0); BG METHEMOGLOBIN 0.3 % (0.0-1.5); BG OXYGEN SATURATION 92.1 % (92.0-98.5); BG PCO2 33.5 mmHg (35.0-45.0); BG PH 7.403 (7.350-7.450); BG PO2 66.1 mmHg (75.0-100.0); BG SAMPLE SITE RIGHT RADIAL; BG TIDAL VOLUME(mL) 500 mL; BG TOTAL HEMOGLOBIN 9.2 g/dL (12.0-18.0); BG VENT MODE VENT - A/C; BG VENT RATE 14 set
[2018-07-05] MEDS: NOREPINEPHRINE 8 MG in DEXT 5% WATER 242 ML IV PRN ×2 (08:29→14:09)
[2018-07-05] MEDS ORDERED: BISACODYL 10MG SUPP PR NR (08:30)
[2018-07-05] MEDS ORDERED: BISACODYL 10MG SUPP PR PRN (08:30)
[2018-07-05 08:36] LABS: PLATELET ESTIMATE SLIGHTLY DECREASED
[2018-07-05] MEDS ORDERED: DOCUSATE SODIUM 250MG CAPSULE PO SCH (09:00)
[2018-07-05] MEDS: PANTOPRAZOLE SODIUM 40 MG/VIAL IV SCH (09:47)
[2018-07-05] MEDS: MIDODRINE HCL 5MG TABLET PO SCH ×3 (09:47→17:49)
[2018-07-05] MEDS: FOLIC ACID/VITAMIN B COMP W-C TABLET PO SCH (09:48)
[2018-07-05] MEDS: BISACODYL 5MG TABLET PO PRN (12:11)
[2018-07-05] MEDS: DOCUSATE SODIUM SUGAR FREE 100MG/10ML UDC NG SCH (12:14)
[2018-07-05] MEDS: DAPTOMYCIN 300 MG in SODIUM CHLORIDE 0.9% 50 ML IV SCH (13:51)
[2018-07-06] VITALS (92 sets, daily range): BP systolic 86–132; BP diastolic 50–80
[2018-07-06] MEDS: DOXYCYCLINE 100 MG in DEXT 5% WATER 100 ML IV SCH ×2 (01:41→12:17)
[2018-07-06] MEDS: IPRATROPIUM/ALBUTEROL 0.5-3(2.5)MG/3ML NEB HHN SCH ×4 (02:13→20:29)
[2018-07-06 05:43] LABS: HEMATOCRIT. 25.4 % (42.0-52.0); HEMOGLOBIN. 8.3 g/dL (14.0-18.0); MEAN CORPUSCULAR HEMOGLOBIN 32.5 pg (28.0-32.0); MEAN CORPUSCULAR VOLUME 99.5 fL (80.0-94.0); MEAN PLATELET VOLUME 11.5 fl (7.4-10.4); PLATELET 146 x1000/uL (130-400); RED BLOOD CELL COUNT 2.56 mill/uL (4.7-6.1); RED CELL DISTRIBUTION WIDTH 14.9 % (11.6-14.6)
[2018-07-06 05:48] LABS: PHOSPHORUS 4.5 mg/dL (2.5-4.9)
[2018-07-06] MEDS: HYDRALAZINE 20MG/ML VIAL IV SCH ×5 (06:00→23:22)
[2018-07-06] MEDS: LEVOTHYROXINE SODIUM 25MCG TABLET PO SCH (06:51)
[2018-07-06] MEDS: CALCIUM ACETATE 667MG CAPSULE PO SCH ×3 (06:51→17:24)
[2018-07-06] MEDS: SEVELAMER CARBONATE 800 MG TABLET PO SCH ×3 (06:51→17:24)
[2018-07-06 07:22] LABS: PLATELET ESTIMATE NORMAL
[2018-07-06] MEDS: FENTANYL CITRATE/PF 500 MCG in SODIUM CHLORIDE 0.9% 40 ML IV PRN ×2 (08:07→17:18)
[2018-07-06] MEDS: FOLIC ACID/VITAMIN B COMP W-C TABLET PO SCH (08:28)
[2018-07-06] MEDS: MIDODRINE HCL 5MG TABLET PO SCH ×3 (08:28→17:24)
[2018-07-06] MEDS: PANTOPRAZOLE SODIUM 40 MG/VIAL IV SCH (08:28)
[2018-07-06] MEDS: DOCUSATE SODIUM SUGAR FREE 100MG/10ML UDC NG SCH (08:28)
[2018-07-06 09:34] LABS: BG BASE EXCESS 1.1 mmol/L (-2.0-2.0); BG CARBOXYHEMOGLOBIN 1.2 % (0.5-1.5); BG DEOXYHEMOGLOBIN 11.3 % (0.0-5.0); BG FRACTION INSPIRED OXYGEN 60; BG HCO3 ACT 25.2 mmol/L (22.0-26.0); BG METHEMOGLOBIN 0.2 % (0.0-1.5); BG OXYGEN SATURATION 88.5 % (92.0-98.5); BG OXYHEMOGLOBIN 87.3 % (94.0-97.0); BG PCO2 37.5 mmHg (35.0-45.0); BG PH 7.445 (7.350-7.450); BG PO2 59.6 mmHg (75.0-100.0); BG SAMPLE SITE LEFT RADIAL; BG TIDAL VOLUME(mL) 500 mL; BG TOTAL HEMOGLOBIN 8.4 g/dL (12.0-18.0); BG VENT MODE VENT - A/C; BG VENT RATE 14 set
[2018-07-06] MEDS: SIMETHICONE 80MG TABLET CHEW PO SCH ×3 (11:26→21:38)
[2018-07-06] MEDS: PHENYLEPHRINE 80 MG in DEXT 5% WATER 492 ML IV PRN ×2 (12:21→20:11)
[2018-07-06] MEDS ORDERED: ETOMIDATE 2MG/ML 10ML VIAL IV ONE (14:00)
[2018-07-06] MEDS ORDERED: SUCCINYLCHOLINE CHLORIDE 200MG/10ML IV ONE (14:00)
[2018-07-06] MEDS: LORAZEPAM 2MG/ML CPJ IV PRN (14:57)
[2018-07-06 16:31] LABS: BG BASE EXCESS -2.6 mmol/L (-2.0-2.0); BG CARBOXYHEMOGLOBIN 0.7 % (0.5-1.5); BG DEOXYHEMOGLOBIN 18.8 % (0.0-5.0); BG FRACTION INSPIRED OXYGEN 100; BG HCO3 ACT 22.9 mmol/L (22.0-26.0); BG METHEMOGLOBIN 0.5 % (0.0-1.5); BG PCO2 43.3 mmHg (35.0-45.0); BG PH 7.342 (7.350-7.450); BG PO2 52.4 mmHg (75.0-100.0); BG SAMPLE SITE RIGHT RADIAL; BG TIDAL VOLUME(mL) 500 mL; BG TOTAL HEMOGLOBIN 8.3 g/dL (12.0-18.0); BG VENT MODE VENT - A/C; BG VENT RATE 14 set
[2018-07-07] VITALS (101 sets, daily range): BP systolic 87–128; BP diastolic 31–82
[2018-07-07] MEDS: DOXYCYCLINE 100 MG in DEXT 5% WATER 100 ML IV SCH ×2 (00:31→12:23)
[2018-07-07] MEDS: IPRATROPIUM/ALBUTEROL 0.5-3(2.5)MG/3ML NEB HHN SCH ×4 (01:27→20:53)
[2018-07-07] MEDS: FENTANYL CITRATE/PF 500 MCG in SODIUM CHLORIDE 0.9% 40 ML IV PRN ×3 (02:39→19:35)
[2018-07-07] MEDS: PHENYLEPHRINE 80 MG in DEXT 5% WATER 492 ML IV PRN ×3 (03:40→19:25)
[2018-07-07 05:23] LABS: HEMATOCRIT. 22.9 % (42.0-52.0); HEMOGLOBIN. 7.4 g/dL (14.0-18.0); MEAN CORPUSCULAR HEMOGLOBIN 32.6 pg (28.0-32.0); MEAN CORPUSCULAR VOLUME 100.3 fL (80.0-94.0); MEAN PLATELET VOLUME 11.8 fl (7.4-10.4); PLATELET 110 x1000/uL (130-400); RED BLOOD CELL COUNT 2.28 mill/uL (4.7-6.1); RED CELL DISTRIBUTION WIDTH 14.8 % (11.6-14.6)
[2018-07-07] MEDS: HYDRALAZINE 20MG/ML VIAL IV SCH ×3 (06:00→17:23)
[2018-07-07] MEDS: SIMETHICONE 80MG TABLET CHEW PO SCH ×4 (06:18→22:03)
[2018-07-07] MEDS: LEVOTHYROXINE SODIUM 25MCG TABLET PO SCH (06:18)
[2018-07-07] MEDS: CALCIUM ACETATE 667MG CAPSULE PO SCH ×3 (06:18→17:23)
[2018-07-07] MEDS: SEVELAMER CARBONATE 800 MG TABLET PO SCH ×3 (06:18→17:22)
[2018-07-07 07:09] LABS: PLATELET ESTIMATE SLIGHTLY DECREASED
[2018-07-07 07:15] LABS: BG CARBOXYHEMOGLOBIN 0.8 % (0.5-1.5); BG DEOXYHEMOGLOBIN 2.5 % (0.0-5.0); BG HCO3 ACT 23.3 mmol/L (22.0-26.0); BG METHEMOGLOBIN 0.2 % (0.0-1.5); BG OXYGEN SATURATION 97.5 % (92.0-98.5); BG OXYHEMOGLOBIN 96.5 % (94.0-97.0); BG PCO2 36.5 mmHg (35.0-45.0); BG PH 7.422 (7.350-7.450); BG PO2 98.1 mmHg (75.0-100.0); BG SAMPLE SITE RIGHT RADIAL; BG TIDAL VOLUME(mL) 500 mL; BG VENT MODE VENT - A/C; BG VENT RATE 14 set
[2018-07-07] MEDS: NOREPINEPHRINE 8 MG in DEXT 5% WATER 242 ML IV PRN (07:54)
[2018-07-07] MEDS: LORAZEPAM 2MG/ML CPJ IV PRN (09:35)
[2018-07-07] MEDS: PANTOPRAZOLE SODIUM 40 MG/VIAL IV SCH (09:36)
[2018-07-07] MEDS: FOLIC ACID/VITAMIN B COMP W-C TABLET PO SCH (09:36)
[2018-07-07] MEDS: MIDODRINE HCL 5MG TABLET PO SCH ×3 (09:36→17:23)
[2018-07-07] MEDS: DOCUSATE SODIUM SUGAR FREE 100MG/10ML UDC NG SCH (09:36)
[2018-07-07] MEDS ORDERED: FENTANYL CITRATE/PF 500 MCG in SODIUM CHLORIDE 0.9% 40 ML IV PRN (09:45)
[2018-07-07] MEDS: DAPTOMYCIN 300 MG in SODIUM CHLORIDE 0.9% 50 ML IV SCH (14:59)
[2018-07-08] VITALS (94 sets, daily range): BP systolic 85–144; BP diastolic 41–84
[2018-07-08] MEDS: DOXYCYCLINE 100 MG in DEXT 5% WATER 100 ML IV SCH ×2 (01:00→12:22)
[2018-07-08] MEDS: IPRATROPIUM/ALBUTEROL 0.5-3(2.5)MG/3ML NEB HHN SCH ×4 (01:16→19:56)
[2018-07-08] MEDS: PHENYLEPHRINE 80 MG in DEXT 5% WATER 492 ML IV PRN ×3 (02:43→18:21)
[2018-07-08] MEDS: FENTANYL CITRATE/PF 500 MCG in SODIUM CHLORIDE 0.9% 40 ML IV PRN ×3 (04:40→22:03)
[2018-07-08] MEDS: HYDRALAZINE 20MG/ML VIAL IV SCH ×4 (05:42→16:54)
[2018-07-08 06:09] LABS: HEMATOCRIT. 26.5 % (42.0-52.0); HEMOGLOBIN. 8.7 g/dL (14.0-18.0); MEAN CORPUSCULAR HEMOGLOBIN 31.8 pg (28.0-32.0); MEAN CORPUSCULAR VOLUME 97.5 fL (80.0-94.0); MEAN PLATELET VOLUME 11.7 fl (7.4-10.4); PLATELET 91 x1000/uL (130-400); RED BLOOD CELL COUNT 2.72 mill/uL (4.7-6.1)
[2018-07-08] MEDS: LEVOTHYROXINE SODIUM 25MCG TABLET PO SCH (06:25)
[2018-07-08] MEDS: CALCIUM ACETATE 667MG CAPSULE PO SCH ×3 (06:29→16:54)
[2018-07-08] MEDS: SEVELAMER CARBONATE 800 MG TABLET PO SCH ×3 (06:29→16:54)
[2018-07-08] MEDS: SIMETHICONE 80MG TABLET CHEW PO SCH ×4 (06:32→20:26)
[2018-07-08 07:35] LABS: PLATELET ESTIMATE DECREASED
[2018-07-08 07:55] LABS: BG BASE EXCESS -0.8 mmol/L (-2.0-2.0); BG CARBOXYHEMOGLOBIN 0.9 % (0.5-1.5); BG DEOXYHEMOGLOBIN 10.5 % (0.0-5.0); BG FRACTION INSPIRED OXYGEN 70; BG HCO3 ACT 23.5 mmol/L (22.0-26.0); BG METHEMOGLOBIN 0.2 % (0.0-1.5); BG OXYGEN SATURATION 89.4 % (92.0-98.5); BG OXYHEMOGLOBIN 88.4 % (94.0-97.0); BG PCO2 37.3 mmHg (35.0-45.0); BG PH 7.418 (7.350-7.450); BG PO2 59.8 mmHg (75.0-100.0); BG SAMPLE SITE RIGHT RADIAL; BG TIDAL VOLUME(mL) 500 mL; BG TOTAL HEMOGLOBIN 9.3 g/dL (12.0-18.0); BG VENT MODE VENT - A/C; BG VENT RATE 14 set
[2018-07-08] MEDS: PANTOPRAZOLE SODIUM 40 MG/VIAL IV SCH ×2 (09:00→09:01)
[2018-07-08] MEDS: DOCUSATE SODIUM SUGAR FREE 100MG/10ML UDC NG SCH (09:00)
[2018-07-08] MEDS: FOLIC ACID/VITAMIN B COMP W-C TABLET PO SCH (09:01)
[2018-07-08] MEDS: MIDODRINE HCL 5MG TABLET PO SCH ×3 (09:01→16:54)
[2018-07-09] VITALS (94 sets, daily range): BP systolic 75–146; BP diastolic 53–98
[2018-07-09] MEDS: DOXYCYCLINE 100 MG in DEXT 5% WATER 100 ML IV SCH ×2 (01:06→12:30)
[2018-07-09] MEDS: IPRATROPIUM/ALBUTEROL 0.5-3(2.5)MG/3ML NEB HHN SCH ×4 (01:51→20:09)
[2018-07-09] MEDS: PHENYLEPHRINE 80 MG in DEXT 5% WATER 492 ML IV PRN ×2 (05:01→17:29)
[2018-07-09] MEDS: FENTANYL CITRATE/PF 500 MCG in SODIUM CHLORIDE 0.9% 40 ML IV PRN ×2 (05:04→11:36)
[2018-07-09] MEDS: HYDRALAZINE 20MG/ML VIAL IV SCH ×4 (05:31→17:26)
[2018-07-09] MEDS: SEVELAMER CARBONATE 800 MG TABLET PO SCH ×3 (06:08→17:10)
[2018-07-09] MEDS: CALCIUM ACETATE 667MG CAPSULE PO SCH ×3 (06:08→17:10)
[2018-07-09] MEDS: SIMETHICONE 80MG TABLET CHEW PO SCH (06:08)
[2018-07-09] MEDS: LEVOTHYROXINE SODIUM 25MCG TABLET PO SCH (06:08)
[2018-07-09] MEDS: DOCUSATE SODIUM SUGAR FREE 100MG/10ML UDC NG SCH (08:30)
[2018-07-09] MEDS: PANTOPRAZOLE SODIUM 40 MG/VIAL IV SCH (08:30)
[2018-07-09] MEDS: FOLIC ACID/VITAMIN B COMP W-C TABLET PO SCH (08:30)
[2018-07-09] MEDS: LORAZEPAM 2MG/ML CPJ IV PRN ×2 (08:31→14:48)
[2018-07-09] MEDS: MIDODRINE HCL 5MG TABLET PO SCH ×3 (08:31→17:10)
[2018-07-09 08:55] LABS: BG BASE EXCESS -4.2 mmol/L (-2.0-2.0); BG CARBOXYHEMOGLOBIN 0.7 % (0.5-1.5); BG DEOXYHEMOGLOBIN 2.8 % (0.0-5.0); BG FRACTION INSPIRED OXYGEN 85; BG METHEMOGLOBIN 0.3 % (0.0-1.5); BG OXYGEN SATURATION 97.2 % (92.0-98.5); BG OXYHEMOGLOBIN 96.2 % (94.0-97.0); BG PCO2 38.9 mmHg (35.0-45.0); BG SAMPLE SITE RIGHT RADIAL; BG TIDAL VOLUME(mL) 500 mL; BG TOTAL HEMOGLOBIN 9.5 g/dL (12.0-18.0); BG VENT MODE VENT - A/C; BG VENT RATE 14 set
[2018-07-09 09:53] LABS: HEMATOCRIT. 24.6 % (42.0-52.0); HEMOGLOBIN. 8.2 g/dL (14.0-18.0); MEAN CORPUSCULAR HEMOGLOBIN 32.2 pg (28.0-32.0); MEAN PLATELET VOLUME 11.5 fl (7.4-10.4); PLATELET 85 x1000/uL (130-400); RED BLOOD CELL COUNT 2.53 mill/uL (4.7-6.1); RED CELL DISTRIBUTION WIDTH 17.8 % (11.6-14.6)
[2018-07-09] MEDS: DAPTOMYCIN 300 MG in SODIUM CHLORIDE 0.9% 50 ML IV SCH (13:25)
[2018-07-09] MEDS ORDERED: HEPARIN SODIUM 1,000 UNIT/1ML VIAL IV SCH (14:45)
[2018-07-09 16:26] LABS: PLATELET ESTIMATE DECREASED
[2018-07-09] MEDS: NOREPINEPHRINE 8 MG in DEXT 5% WATER 242 ML IV PRN (17:40)
[2018-07-09] MEDS: FENTANYL CITRATE/PF 1,000 MCG in SODIUM CHLORIDE 0.9% 80 ML IV PRN (18:36)
[2018-07-10] VITALS (93 sets, daily range): BP systolic 94–132; BP diastolic 43–87
[2018-07-10] MEDS: HYDRALAZINE 20MG/ML VIAL IV SCH ×4 (00:08→17:40)
[2018-07-10] MEDS: DOXYCYCLINE 100 MG in DEXT 5% WATER 100 ML IV SCH ×2 (00:09→12:56)
[2018-07-10] MEDS: PHENYLEPHRINE 80 MG in DEXT 5% WATER 492 ML IV PRN ×2 (00:56→11:49)
[2018-07-10] MEDS: IPRATROPIUM/ALBUTEROL 0.5-3(2.5)MG/3ML NEB HHN SCH ×4 (01:48→20:03)
[2018-07-10] MEDS: SEVELAMER CARBONATE 800 MG TABLET PO SCH ×3 (06:08→17:39)
[2018-07-10] MEDS: CALCIUM ACETATE 667MG CAPSULE PO SCH ×3 (06:08→17:39)
[2018-07-10] MEDS: LEVOTHYROXINE SODIUM 25MCG TABLET PO SCH (06:09)
[2018-07-10 08:32] LABS: HEMATOCRIT. 25.3 % (42.0-52.0); HEMOGLOBIN. 8.5 g/dL (14.0-18.0); MEAN CORPUSCULAR HEMOGLOBIN 32.4 pg (28.0-32.0); MEAN CORPUSCULAR VOLUME 96.8 fL (80.0-94.0); PLATELET 86 x1000/uL (130-400); RED BLOOD CELL COUNT 2.62 mill/uL (4.7-6.1); RED CELL DISTRIBUTION WIDTH 17.8 % (11.6-14.6)
[2018-07-10 08:57] LABS: BG BASE EXCESS -0.2 mmol/L (-2.0-2.0); BG CARBOXYHEMOGLOBIN 0.7 % (0.5-1.5); BG DEOXYHEMOGLOBIN 2.4 % (0.0-5.0); BG FRACTION INSPIRED OXYGEN 70; BG HCO3 ACT 24.3 mmol/L (22.0-26.0); BG METHEMOGLOBIN 0.3 % (0.0-1.5); BG OXYGEN SATURATION 97.6 % (92.0-98.5); BG OXYHEMOGLOBIN 96.6 % (94.0-97.0); BG PCO2 39.1 mmHg (35.0-45.0); BG PH 7.412 (7.350-7.450); BG PO2 102.3 mmHg (75.0-100.0); BG SAMPLE SITE LEFT RADIAL; BG TIDAL VOLUME(mL) 500 mL; BG TOTAL HEMOGLOBIN 8.5 g/dL (12.0-18.0); BG VENT MODE VENT - A/C; BG VENT RATE 12 set
[2018-07-10] MEDS: DOCUSATE SODIUM SUGAR FREE 100MG/10ML UDC NG SCH (09:18)
[2018-07-10] MEDS: FOLIC ACID/VITAMIN B COMP W-C TABLET PO SCH (09:19)
[2018-07-10] MEDS: MIDODRINE HCL 5MG TABLET PO SCH ×3 (09:19→17:39)
[2018-07-10] MEDS: PANTOPRAZOLE SODIUM 40 MG/VIAL IV SCH (09:19)
[2018-07-10] MEDS: BISACODYL 5MG TABLET PO PRN (09:19)
[2018-07-10] MEDS ORDERED: NOREPINEPHRINE 8 MG in DEXT 5% WATER 242 ML IV PRN (09:25)
[2018-07-10] MEDS: METOCLOPRAMIDE HCL 10MG/2ML VIAL IV SCH ×2 (11:50→17:41)
[2018-07-10 12:54] LABS: ATYPICAL LYMPHOCYTES 1; PLATELET ESTIMATE SLIGHTLY DECREASED
[2018-07-10] MEDS: FENTANYL CITRATE/PF 1,000 MCG in SODIUM CHLORIDE 0.9% 80 ML IV PRN (22:34)
[2018-07-11] VITALS (93 sets, daily range): BP systolic 77–122; BP diastolic 50–79
[2018-07-11] MEDS: METOCLOPRAMIDE HCL 10MG/2ML VIAL IV SCH ×4 (00:42→17:50)
[2018-07-11] MEDS: IPRATROPIUM/ALBUTEROL 0.5-3(2.5)MG/3ML NEB HHN SCH ×4 (01:53→19:40)
[2018-07-11 05:37] LABS: HEMATOCRIT. 26.5 % (42.0-52.0); HEMOGLOBIN. 8.7 g/dL (14.0-18.0); MEAN CORPUSCULAR VOLUME 97.6 fL (80.0-94.0); MEAN PLATELET VOLUME 12.1 fl (7.4-10.4); PLATELET 96 x1000/uL (130-400); RED BLOOD CELL COUNT 2.71 mill/uL (4.7-6.1); RED CELL DISTRIBUTION WIDTH 17.7 % (11.6-14.6)
[2018-07-11] MEDS: LEVOTHYROXINE SODIUM 25MCG TABLET PO SCH (05:47)
[2018-07-11] MEDS: HYDRALAZINE 20MG/ML VIAL IV SCH ×4 (05:47→17:10)
[2018-07-11 07:41] LABS: BG BASE EXCESS -2.7 mmol/L (-2.0-2.0); BG CARBOXYHEMOGLOBIN 0.4 % (0.5-1.5); BG DEOXYHEMOGLOBIN 10.6 % (0.0-5.0); BG HCO3 ACT 21.7 mmol/L (22.0-26.0); BG METHEMOGLOBIN 0.4 % (0.0-1.5); BG OXYGEN SATURATION 89.3 % (92.0-98.5); BG OXYHEMOGLOBIN 88.6 % (94.0-97.0); BG PCO2 35.8 mmHg (35.0-45.0); BG PO2 61.8 mmHg (75.0-100.0); BG SAMPLE SITE RIGHT RADIAL; BG TIDAL VOLUME(mL) 500 mL; BG TOTAL HEMOGLOBIN 9.5 g/dL (12.0-18.0); BG VENT MODE VENT - A/C; BG VENT RATE 12 set
[2018-07-11] MEDS ORDERED: BISACODYL 10MG SUPP PR NR (09:30)
[2018-07-11] MEDS ORDERED: NA PHOS,M-B/NA PHOS,DI-BA ENEMA 118ML PR NR (09:30)
[2018-07-11] MEDS ORDERED: BISACODYL 10MG SUPP PR PRN (09:30)
[2018-07-11] MEDS ORDERED: HEPARIN SODIUM 1,000 UNIT/1ML VIAL IV SCH (10:00)
[2018-07-11 10:10] LABS: PLATELET ESTIMATE SLIGHTLY DECREASED
[2018-07-11] MEDS: DOCUSATE SODIUM SUGAR FREE 100MG/10ML UDC NG SCH (10:33)
[2018-07-11] MEDS: PANTOPRAZOLE SODIUM 40 MG/VIAL IV SCH (10:33)
[2018-07-11] MEDS: FOLIC ACID/VITAMIN B COMP W-C TABLET PO SCH (10:34)
[2018-07-11] MEDS: MIDODRINE HCL 5MG TABLET PO SCH ×3 (10:34→19:22)
[2018-07-11] MEDS: DAPTOMYCIN 300 MG in SODIUM CHLORIDE 0.9% 50 ML IV SCH (13:29)
[2018-07-11] MEDS: PHENYLEPHRINE 80 MG in DEXT 5% WATER 492 ML IV PRN (14:28)
[2018-07-11] MEDS: FENTANYL CITRATE/PF 1,000 MCG in SODIUM CHLORIDE 0.9% 80 ML IV PRN (15:11)
[2018-07-12] VITALS (86 sets, daily range): BP systolic 71–188; BP diastolic 28–110
[2018-07-12] MEDS: METOCLOPRAMIDE HCL 10MG/2ML VIAL IV SCH ×4 (00:59→17:58)
[2018-07-12] MEDS: IPRATROPIUM/ALBUTEROL 0.5-3(2.5)MG/3ML NEB HHN SCH ×4 (01:25→20:20)
[2018-07-12] MEDS: PHENYLEPHRINE 80 MG in DEXT 5% WATER 492 ML IV PRN ×2 (05:46→17:51)
[2018-07-12 05:55] LABS: BASOPHILS % 0.6 % (0.0-2.0); EOSINOPHILS % 0.7 % (0.0-5.0); HEMATOCRIT. 24.3 % (42.0-52.0); HEMOGLOBIN. 7.9 g/dL (14.0-18.0); LYMPHOCYTES % 7.9 % (20.0-50.0); MEAN CORPUSCULAR HEMOGLOBIN 32.2 pg (28.0-32.0); MEAN CORPUSCULAR VOLUME 98.7 fL (80.0-94.0); MEAN PLATELET VOLUME 11.1 fl (7.4-10.4); MONOCYTES % 2.7 % (2.0-8.0); NEUTROPHILS % 88.1 % (40.0-76.0); PLATELET 80 x1000/uL (130-400); RED BLOOD CELL COUNT 2.46 mill/uL (4.7-6.1); RED CELL DISTRIBUTION WIDTH 17.3 % (11.6-14.6)
[2018-07-12] MEDS ORDERED: CEFAZOLIN 1000MG PREMIX 50 ML IV SCH (06:00)
[2018-07-12] MEDS: HYDRALAZINE 20MG/ML VIAL IV SCH ×5 (06:00→23:51)
[2018-07-12] MEDS: LEVOTHYROXINE SODIUM 25MCG TABLET PO SCH (06:27)
[2018-07-12 07:47] LABS: BG BASE EXCESS -3.6 mmol/L (-2.0-2.0); BG CARBOXYHEMOGLOBIN 0.7 % (0.5-1.5); BG DEOXYHEMOGLOBIN 4.2 % (0.0-5.0); BG FRACTION INSPIRED OXYGEN 70; BG HCO3 ACT 21.5 mmol/L (22.0-26.0); BG METHEMOGLOBIN 0.3 % (0.0-1.5); BG OXYGEN SATURATION 95.8 % (92.0-98.5); BG OXYHEMOGLOBIN 94.8 % (94.0-97.0); BG PCO2 38.7 mmHg (35.0-45.0); BG PH 7.362 (7.350-7.450); BG PO2 90.2 mmHg (75.0-100.0); BG SAMPLE SITE RIGHT RADIAL; BG TIDAL VOLUME(mL) 500 mL; BG VENT MODE VENT - A/C; BG VENT RATE 12 set
[2018-07-12] MEDS: DOCUSATE SODIUM SUGAR FREE 100MG/10ML UDC NG SCH (09:18)
[2018-07-12] MEDS: FOLIC ACID/VITAMIN B COMP W-C TABLET PO SCH (09:18)
[2018-07-12] MEDS: PANTOPRAZOLE SODIUM 40 MG/VIAL IV SCH (09:18)
[2018-07-12] MEDS: MIDODRINE HCL 5MG TABLET PO SCH ×3 (09:18→17:58)
[2018-07-12] MEDS ORDERED: SORBITOL 70% SOLN 30ML PO NR (10:30)
[2018-07-12] MEDS ORDERED: HEPARIN SODIUM 1,000 UNIT/1ML VIAL IV NR (16:15)
[2018-07-12] MEDS: CEFAZOLIN 1000MG PREMIX 50 ML IV SCH (17:58)
[2018-07-13] VITALS (95 sets, daily range): BP systolic 84–126; BP diastolic 48–86
[2018-07-13] MEDS: METOCLOPRAMIDE HCL 10MG/2ML VIAL IV SCH ×4 (00:02→17:10)
[2018-07-13] MEDS: FENTANYL CITRATE/PF 1,000 MCG in SODIUM CHLORIDE 0.9% 80 ML IV PRN ×2 (01:37→17:45)
[2018-07-13] MEDS: PHENYLEPHRINE 80 MG in DEXT 5% WATER 492 ML IV PRN ×2 (01:38→16:51)
[2018-07-13] MEDS: IPRATROPIUM/ALBUTEROL 0.5-3(2.5)MG/3ML NEB HHN SCH ×4 (02:22→19:47)
[2018-07-13 05:57] LABS: BASOPHILS % 0.7 % (0.0-2.0); EOSINOPHILS % 0.6 % (0.0-5.0); HEMATOCRIT. 25.2 % (42.0-52.0); HEMOGLOBIN. 8.1 g/dL (14.0-18.0); LYMPHOCYTES % 7.3 % (20.0-50.0); MEAN CORPUSCULAR HEMOGLOBIN 32.2 pg (28.0-32.0); MEAN CORPUSCULAR VOLUME 100.2 fL (80.0-94.0); MEAN PLATELET VOLUME 11.6 fl (7.4-10.4); MONOCYTES % 4.5 % (2.0-8.0); NEUTROPHILS % 86.9 % (40.0-76.0); PLATELET 72 x1000/uL (130-400); RED BLOOD CELL COUNT 2.52 mill/uL (4.7-6.1); RED CELL DISTRIBUTION WIDTH 17.9 % (11.6-14.6)
[2018-07-13] MEDS: HYDRALAZINE 20MG/ML VIAL IV SCH ×3 (06:00→17:02)
[2018-07-13] MEDS: LEVOTHYROXINE SODIUM 25MCG TABLET PO SCH (06:21)
[2018-07-13 08:02] LABS: BG BASE EXCESS -4.4 mmol/L (-2.0-2.0); BG CARBOXYHEMOGLOBIN 0.6 % (0.5-1.5); BG DEOXYHEMOGLOBIN 1.6 % (0.0-5.0); BG FRACTION INSPIRED OXYGEN 60; BG HCO3 ACT 20.3 mmol/L (22.0-26.0); BG METHEMOGLOBIN 0.3 % (0.0-1.5); BG OXYGEN SATURATION 98.4 % (92.0-98.5); BG OXYHEMOGLOBIN 97.5 % (94.0-97.0); BG PCO2 35.8 mmHg (35.0-45.0); BG PH 7.372 (7.350-7.450); BG PO2 118.2 mmHg (75.0-100.0); BG SAMPLE SITE RIGHT RADIAL; BG TIDAL VOLUME(mL) 500 mL; BG TOTAL HEMOGLOBIN 8.9 g/dL (12.0-18.0); BG VENT MODE VENT - A/C; BG VENT RATE 12 set
[2018-07-13] MEDS: FOLIC ACID/VITAMIN B COMP W-C TABLET PO SCH (09:11)
[2018-07-13] MEDS: PANTOPRAZOLE SODIUM 40 MG/VIAL IV SCH (09:11)
[2018-07-13] MEDS: DOCUSATE SODIUM SUGAR FREE 100MG/10ML UDC NG SCH (09:11)
[2018-07-13] MEDS: MIDODRINE HCL 5MG TABLET PO SCH ×3 (09:12→17:10)
[2018-07-13] MEDS: DAPTOMYCIN 300 MG in SODIUM CHLORIDE 0.9% 50 ML IV SCH (14:58)
[2018-07-13] MEDS: CEFAZOLIN 1000MG PREMIX 50 ML IV SCH (17:10)
[2018-07-14] VITALS (95 sets, daily range): BP systolic 81–117; BP diastolic 41–79
[2018-07-14] MEDS: METOCLOPRAMIDE HCL 10MG/2ML VIAL IV SCH ×4 (00:04→17:27)
[2018-07-14] MEDS: IPRATROPIUM/ALBUTEROL 0.5-3(2.5)MG/3ML NEB HHN SCH ×4 (02:11→20:57)
[2018-07-14] MEDS: PHENYLEPHRINE 80 MG in DEXT 5% WATER 492 ML IV PRN ×3 (02:15→21:08)
[2018-07-14 05:43] LABS: HEMATOCRIT. 25.5 % (42.0-52.0); HEMOGLOBIN. 8.2 g/dL (14.0-18.0); MEAN PLATELET VOLUME 11.7 fl (7.4-10.4); PLATELET 67 x1000/uL (130-400); RED BLOOD CELL COUNT 2.55 mill/uL (4.7-6.1)
[2018-07-14] MEDS: HYDRALAZINE 20MG/ML VIAL IV SCH ×4 (05:46→17:18)
[2018-07-14] MEDS: LEVOTHYROXINE SODIUM 25MCG TABLET PO SCH (06:23)
[2018-07-14 07:35] LABS: BG BASE EXCESS -6.7 mmol/L (-2.0-2.0); BG CARBOXYHEMOGLOBIN 0.6 % (0.5-1.5); BG DEOXYHEMOGLOBIN 4.4 % (0.0-5.0); BG FRACTION INSPIRED OXYGEN 60; BG HCO3 ACT 18.9 mmol/L (22.0-26.0); BG METHEMOGLOBIN 0.5 % (0.0-1.5); BG OXYGEN SATURATION 95.6 % (92.0-98.5); BG OXYHEMOGLOBIN 94.5 % (94.0-97.0); BG PH 7.314 (7.350-7.450); BG PO2 89.3 mmHg (75.0-100.0); BG SAMPLE SITE RIGHT RADIAL; BG TIDAL VOLUME(mL) 500 mL; BG TOTAL HEMOGLOBIN 9.1 g/dL (12.0-18.0); BG VENT MODE VENT - A/C; BG VENT RATE 12 set
[2018-07-14 07:36] LABS: PLATELET ESTIMATE DECREASED
[2018-07-14] MEDS ORDERED: HEPARIN SODIUM 1,000 UNIT/1ML VIAL IV NR (08:45)
[2018-07-14] MEDS: PANTOPRAZOLE SODIUM 40 MG/VIAL IV SCH (09:28)
[2018-07-14] MEDS: DOCUSATE SODIUM SUGAR FREE 100MG/10ML UDC NG SCH (09:29)
[2018-07-14] MEDS: FOLIC ACID/VITAMIN B COMP W-C TABLET PO SCH (09:29)
[2018-07-14] MEDS: MIDODRINE HCL 5MG TABLET PO SCH ×3 (09:30→17:28)
[2018-07-14] MEDS: FENTANYL CITRATE/PF 1,000 MCG in SODIUM CHLORIDE 0.9% 80 ML IV PRN ×2 (09:34→20:55)
[2018-07-14] MEDS: CEFAZOLIN 1000MG PREMIX 50 ML IV SCH (17:27)
[2018-07-15] VITALS (99 sets, daily range): BP systolic 82–135; BP diastolic 36–88
[2018-07-15] MEDS: METOCLOPRAMIDE HCL 10MG/2ML VIAL IV SCH ×4 (00:36→17:26)
[2018-07-15] MEDS: IPRATROPIUM/ALBUTEROL 0.5-3(2.5)MG/3ML NEB HHN SCH ×4 (04:12→20:30)
[2018-07-15] MEDS: LEVOTHYROXINE SODIUM 25MCG TABLET PO SCH (05:15)
[2018-07-15 05:42] LABS: BASOPHILS % 0.4 % (0.0-2.0); EOSINOPHILS % 0.4 % (0.0-5.0); HEMATOCRIT. 23.1 % (42.0-52.0); HEMOGLOBIN. 7.4 g/dL (14.0-18.0); LYMPHOCYTES % 7.4 % (20.0-50.0); MEAN CORPUSCULAR HEMOGLOBIN 32.1 pg (28.0-32.0); MEAN CORPUSCULAR VOLUME 100.7 fL (80.0-94.0); MEAN PLATELET VOLUME 11.1 fl (7.4-10.4); MONOCYTES % 2.9 % (2.0-8.0); NEUTROPHILS % 88.9 % (40.0-76.0); PLATELET 50 x1000/uL (130-400); RED BLOOD CELL COUNT 2.29 mill/uL (4.7-6.1); RED CELL DISTRIBUTION WIDTH 18.6 % (11.6-14.6)
[2018-07-15] MEDS: HYDRALAZINE 20MG/ML VIAL IV SCH ×4 (06:00→17:26)
[2018-07-15] MEDS: FENTANYL CITRATE/PF 1,000 MCG in SODIUM CHLORIDE 0.9% 80 ML IV PRN ×2 (06:11→15:25)
[2018-07-15 07:44] LABS: BG BASE EXCESS -3.9 mmol/L (-2.0-2.0); BG CARBOXYHEMOGLOBIN 0.5 % (0.5-1.5); BG DEOXYHEMOGLOBIN 6.9 % (0.0-5.0); BG HCO3 ACT 22.6 mmol/L (22.0-26.0); BG METHEMOGLOBIN 0.3 % (0.0-1.5); BG OXYHEMOGLOBIN 92.3 % (94.0-97.0); BG PCO2 47.4 mmHg (35.0-45.0); BG PH 7.296 (7.350-7.450); BG PO2 77.4 mmHg (75.0-100.0); BG SAMPLE SITE RIGHT RADIAL; BG TIDAL VOLUME(mL) 500 mL; BG TOTAL HEMOGLOBIN 10.1 g/dL (12.0-18.0); BG VENT MODE VENT - A/C; BG VENT RATE 12 set
[2018-07-15 08:17] LABS: PLATELET ESTIMATE MARKEDLY DECREASED
[2018-07-15] MEDS: PHENYLEPHRINE 80 MG in DEXT 5% WATER 492 ML IV PRN ×2 (08:38→20:20)
[2018-07-15] MEDS: DOCUSATE SODIUM SUGAR FREE 100MG/10ML UDC NG SCH (09:29)
[2018-07-15] MEDS: PANTOPRAZOLE SODIUM 40 MG/VIAL IV SCH (09:29)
[2018-07-15] MEDS: MIDODRINE HCL 5MG TABLET PO SCH ×3 (09:30→17:25)
[2018-07-15] MEDS: FOLIC ACID/VITAMIN B COMP W-C TABLET PO SCH (09:30)
[2018-07-15] MEDS: BISACODYL 5MG TABLET PO PRN (09:31)
[2018-07-15] MEDS ORDERED: LIDOCAINE HCL 1% 20ML VIAL (Pyxis) INJ ONE (10:58)
[2018-07-15] MEDS: DAPTOMYCIN 300 MG in SODIUM CHLORIDE 0.9% 50 ML IV SCH (13:54)
[2018-07-15] MEDS: CEFAZOLIN 1000MG PREMIX 50 ML IV SCH (17:25)
[2018-07-16] VITALS (89 sets, daily range): BP systolic 93–127; BP diastolic 51–97
[2018-07-16] MEDS: IPRATROPIUM/ALBUTEROL 0.5-3(2.5)MG/3ML NEB HHN SCH ×4 (00:02→20:27)
[2018-07-16] MEDS: METOCLOPRAMIDE HCL 10MG/2ML VIAL IV SCH ×4 (00:46→18:21)
[2018-07-16] MEDS: FENTANYL CITRATE/PF 1,000 MCG in SODIUM CHLORIDE 0.9% 80 ML IV PRN ×2 (02:43→12:07)
[2018-07-16 05:44] LABS: HEMATOCRIT. 26.3 % (42.0-52.0); HEMOGLOBIN. 8.6 g/dL (14.0-18.0); MEAN CORPUSCULAR HEMOGLOBIN 31.7 pg (28.0-32.0); MEAN CORPUSCULAR VOLUME 97.3 fL (80.0-94.0); MEAN PLATELET VOLUME 11.1 fl (7.4-10.4); RED BLOOD CELL COUNT 2.71 mill/uL (4.7-6.1); RED CELL DISTRIBUTION WIDTH 20.4 % (11.6-14.6)
[2018-07-16] MEDS: HYDRALAZINE 20MG/ML VIAL IV SCH ×4 (05:52→18:00)
[2018-07-16] MEDS: LEVOTHYROXINE SODIUM 25MCG TABLET PO SCH (05:54)
[2018-07-16 06:40] LABS: PLATELET 44 x1000/uL (130-400)
[2018-07-16 07:57] LABS: PLATELET ESTIMATE MARKEDLY DECREASED
[2018-07-16 08:20] LABS: BG BASE EXCESS -4.9 mmol/L (-2.0-2.0); BG CARBOXYHEMOGLOBIN 0.8 % (0.5-1.5); BG DEOXYHEMOGLOBIN 4.9 % (0.0-5.0); BG FRACTION INSPIRED OXYGEN 60; BG HCO3 ACT 20.4 mmol/L (22.0-26.0); BG METHEMOGLOBIN 0.4 % (0.0-1.5); BG OXYHEMOGLOBIN 93.9 % (94.0-97.0); BG PCO2 38.3 mmHg (35.0-45.0); BG PH 7.344 (7.350-7.450); BG PO2 80.4 mmHg (75.0-100.0); BG SAMPLE SITE LEFT RADIAL; BG TIDAL VOLUME(mL) 500 mL; BG TOTAL HEMOGLOBIN 9.4 g/dL (12.0-18.0); BG VENT MODE VENT - A/C; BG VENT RATE 16 set
[2018-07-16] MEDS: DOCUSATE SODIUM SUGAR FREE 100MG/10ML UDC NG SCH (09:33)
[2018-07-16] MEDS: MIDODRINE HCL 5MG TABLET PO SCH ×3 (09:33→17:00)
[2018-07-16] MEDS: FOLIC ACID/VITAMIN B COMP W-C TABLET PO SCH (09:34)
[2018-07-16] MEDS: PANTOPRAZOLE SODIUM 40 MG/VIAL IV SCH (09:34)
[2018-07-16] MEDS: PHENYLEPHRINE 80 MG in DEXT 5% WATER 492 ML IV PRN (12:09)
[2018-07-16] MEDS ORDERED: HEPARIN SODIUM 1,000 UNIT/1ML VIAL IV NR (16:30)
[2018-07-16] MEDS: CEFAZOLIN 1000MG PREMIX 50 ML IV SCH (18:25)
[2018-07-17] VITALS (89 sets, daily range): BP systolic 91–126; BP diastolic 46–72
[2018-07-17] MEDS: FENTANYL CITRATE/PF 1,000 MCG in SODIUM CHLORIDE 0.9% 80 ML IV PRN (00:14)
[2018-07-17] MEDS: METOCLOPRAMIDE HCL 10MG/2ML VIAL IV SCH ×4 (00:19→18:38)
[2018-07-17] MEDS: IPRATROPIUM/ALBUTEROL 0.5-3(2.5)MG/3ML NEB HHN SCH ×4 (02:14→20:35)
[2018-07-17 05:22] LABS: HEMATOCRIT. 26.6 % (42.0-52.0); HEMOGLOBIN. 8.6 g/dL (14.0-18.0); MEAN CORPUSCULAR HEMOGLOBIN 31.3 pg (28.0-32.0); MEAN CORPUSCULAR VOLUME 97.2 fL (80.0-94.0); MEAN PLATELET VOLUME 10.8 fl (7.4-10.4); RED BLOOD CELL COUNT 2.74 mill/uL (4.7-6.1); RED CELL DISTRIBUTION WIDTH 21.2 % (11.6-14.6)
[2018-07-17 05:37] LABS: PLATELET 38 x1000/uL (130-400)
[2018-07-17] MEDS: HYDRALAZINE 20MG/ML VIAL IV SCH ×4 (05:42→18:00)
[2018-07-17] MEDS: LEVOTHYROXINE SODIUM 25MCG TABLET PO SCH (05:42)
[2018-07-17] MEDS: PHENYLEPHRINE 80 MG in DEXT 5% WATER 492 ML IV PRN (05:49)
[2018-07-17 08:05] LABS: BG BASE EXCESS -1.7 mmol/L (-2.0-2.0); BG CARBOXYHEMOGLOBIN 1.1 % (0.5-1.5); BG DEOXYHEMOGLOBIN 6.3 % (0.0-5.0); BG FRACTION INSPIRED OXYGEN 60; BG HCO3 ACT 23.2 mmol/L (22.0-26.0); BG METHEMOGLOBIN 0.3 % (0.0-1.5); BG OXYGEN SATURATION 93.6 % (92.0-98.5); BG OXYHEMOGLOBIN 92.3 % (94.0-97.0); BG PCO2 39.6 mmHg (35.0-45.0); BG PH 7.385 (7.350-7.450); BG PO2 71.5 mmHg (75.0-100.0); BG SAMPLE SITE RIGHT RADIAL; BG TIDAL VOLUME(mL) 500 mL; BG TOTAL HEMOGLOBIN 9.3 g/dL (12.0-18.0); BG VENT MODE VENT - A/C; BG VENT RATE 16 set
[2018-07-17] MEDS: PANTOPRAZOLE SODIUM 40 MG/VIAL IV SCH (08:32)
[2018-07-17] MEDS: DOCUSATE SODIUM SUGAR FREE 100MG/10ML UDC NG SCH (08:32)
[2018-07-17] MEDS: FOLIC ACID/VITAMIN B COMP W-C TABLET PO SCH (08:33)
[2018-07-17] MEDS: MIDODRINE HCL 5MG TABLET PO SCH ×3 (08:34→17:14)
[2018-07-17 09:53] LABS: PLATELET ESTIMATE MARKEDLY DECREASED
[2018-07-17] MEDS: MORPHINE SULFATE 4 MG/ML CPJ (NOT FOR IM USE) IV PRN ×3 (10:40→19:18)
[2018-07-17] MEDS: QUETIAPINE FUMARATE 25MG TABLET PO SCH ×2 (10:43→21:28)
[2018-07-17] MEDS ORDERED: DAPTOMYCIN 300 MG in SODIUM CHLORIDE 0.9% 50 ML IV SCH (14:00)
[2018-07-17] MEDS: CEFAZOLIN 1000MG PREMIX 50 ML IV SCH (17:25)
[2018-07-18] VITALS (93 sets, daily range): BP systolic 95–138; BP diastolic 56–105
[2018-07-18] MEDS: IPRATROPIUM/ALBUTEROL 0.5-3(2.5)MG/3ML NEB HHN SCH ×4 (01:52→19:50)
[2018-07-18] MEDS: MORPHINE SULFATE 4 MG/ML CPJ (NOT FOR IM USE) IV PRN ×4 (02:03→15:36)
[2018-07-18] MEDS: METOCLOPRAMIDE HCL 10MG/2ML VIAL IV SCH ×4 (05:57→17:58)
[2018-07-18] MEDS: HYDRALAZINE 20MG/ML VIAL IV SCH ×4 (05:57→18:00)
[2018-07-18] MEDS: LEVOTHYROXINE SODIUM 25MCG TABLET PO SCH (05:57)
[2018-07-18 06:36] LABS: HEMOGLOBIN. 8.1 g/dL (14.0-18.0); MEAN CORPUSCULAR HEMOGLOBIN 31.7 pg (28.0-32.0); MEAN CORPUSCULAR VOLUME 97.7 fL (80.0-94.0); MEAN PLATELET VOLUME 10.9 fl (7.4-10.4); RED BLOOD CELL COUNT 2.56 mill/uL (4.7-6.1); RED CELL DISTRIBUTION WIDTH 19.8 % (11.6-14.6)
[2018-07-18] MEDS: PANTOPRAZOLE SODIUM 40 MG/VIAL IV SCH (09:08)
[2018-07-18] MEDS: MIDODRINE HCL 5MG TABLET PO SCH ×3 (09:09→17:59)
[2018-07-18] MEDS: FOLIC ACID/VITAMIN B COMP W-C TABLET PO SCH (09:09)
[2018-07-18] MEDS: DOCUSATE SODIUM SUGAR FREE 100MG/10ML UDC NG SCH (09:09)
[2018-07-18] MEDS: QUETIAPINE FUMARATE 25MG TABLET PO SCH ×2 (09:10→21:51)
[2018-07-18 10:11] LABS: BG DEOXYHEMOGLOBIN 5.1 % (0.0-5.0); BG HCO3 ACT 21.2 mmol/L (22.0-26.0); BG METHEMOGLOBIN 0.3 % (0.0-1.5); BG OXYGEN SATURATION 94.8 % (92.0-98.5); BG OXYHEMOGLOBIN 93.6 % (94.0-97.0); BG PCO2 34.6 mmHg (35.0-45.0); BG PH 7.406 (7.350-7.450); BG SAMPLE SITE RIGHT RADIAL; BG TIDAL VOLUME(mL) 500 mL; BG TOTAL HEMOGLOBIN 9.6 g/dL (12.0-18.0); BG VENT MODE VENT - A/C; BG VENT RATE 16 set
[2018-07-18 11:53] LABS: PLATELET ESTIMATE MARKEDLY DECREASED
[2018-07-18 11:54] LABS: PLATELET 36 x1000/uL (130-400)
[2018-07-18 12:34] LABS: INR 1.2; PROTHROMBIN TIME 11.6 sec (9.1-11.1)
[2018-07-18] MEDS: CEFAZOLIN 1000MG PREMIX 50 ML IV SCH (17:58)
[2018-07-18 20:12] LABS: INR 1.2; PROTHROMBIN TIME 11.6 sec (9.1-11.1)
[2018-07-19] VITALS (105 sets, daily range): BP systolic 76–140; BP diastolic 43–96
[2018-07-19] MEDS: METOCLOPRAMIDE HCL 10MG/2ML VIAL IV SCH ×5 (00:54→23:59)
[2018-07-19] MEDS: MORPHINE SULFATE 4 MG/ML CPJ (NOT FOR IM USE) IV PRN (00:58)
[2018-07-19] MEDS: IPRATROPIUM/ALBUTEROL 0.5-3(2.5)MG/3ML NEB HHN SCH ×5 (01:44→20:17)
[2018-07-19] MEDS: HYDRALAZINE 20MG/ML VIAL IV SCH ×5 (06:00→23:58)
[2018-07-19] MEDS: LEVOTHYROXINE SODIUM 25MCG TABLET PO SCH (06:12)
[2018-07-19] MEDS: DOCUSATE SODIUM SUGAR FREE 100MG/10ML UDC NG SCH (09:00)
[2018-07-19] MEDS: QUETIAPINE FUMARATE 25MG TABLET PO SCH ×2 (09:00→20:47)
[2018-07-19] MEDS: MIDODRINE HCL 5MG TABLET PO SCH ×3 (09:00→18:25)
[2018-07-19] MEDS: FOLIC ACID/VITAMIN B COMP W-C TABLET PO SCH (09:00)
[2018-07-19] MEDS: PANTOPRAZOLE SODIUM 40 MG/VIAL IV SCH (09:00)
[2018-07-19 09:36] LABS: HEMATOCRIT. 23.9 % (42.0-52.0); HEMOGLOBIN. 7.7 g/dL (14.0-18.0); MEAN CORPUSCULAR HEMOGLOBIN 31.3 pg (28.0-32.0); MEAN CORPUSCULAR VOLUME 97.4 fL (80.0-94.0); MEAN PLATELET VOLUME 9.1 fl (7.4-10.4); PLATELET 161 x1000/uL (130-400); RED BLOOD CELL COUNT 2.46 mill/uL (4.7-6.1); RED CELL DISTRIBUTION WIDTH 19.2 % (11.6-14.6)
[2018-07-19 10:29] LABS: PLATELET ESTIMATE NORMAL
[2018-07-19 11:28] LABS: PHOSPHORUS 5.5 mg/dL (2.5-4.9)
[2018-07-19] MEDS ORDERED: LORAZEPAM 2MG/ML CPJ IV NR (12:00)
[2018-07-19] MEDS ORDERED: ALTEPLASE 2MG/VIAL ITC NR ×2 (12:30)
[2018-07-19] MEDS ORDERED: IPRATROPIUM/ALBUTEROL 0.5-3(2.5)MG/3ML NEB INH PRN (14:00)
[2018-07-19] MEDS: DAPTOMYCIN IV SCH (14:28)
[2018-07-19] MEDS: SODIUM CHLORIDE 0.9% IV SCH (14:28)
[2018-07-19 15:03] LABS: BG BASE EXCESS -7.5 mmol/L (-2.0-2.0); BG CARBOXYHEMOGLOBIN 0.9 % (0.5-1.5); BG DEOXYHEMOGLOBIN 13.9 % (0.0-5.0); BG FRACTION INSPIRED OXYGEN 100; BG HCO3 ACT 19.4 mmol/L (22.0-26.0); BG METHEMOGLOBIN 0.3 % (0.0-1.5); BG OXYGEN SATURATION 85.9 % (92.0-98.5); BG OXYHEMOGLOBIN 84.9 % (94.0-97.0); BG PCO2 44.9 mmHg (35.0-45.0); BG PH 7.253 (7.350-7.450); BG PO2 61.5 mmHg (75.0-100.0); BG SAMPLE SITE RIGHT RADIAL; BG TIDAL VOLUME(mL) 500 mL; BG TOTAL HEMOGLOBIN 11.1 g/dL (12.0-18.0); BG VENT MODE VENT - A/C; BG VENT RATE 16 set
[2018-07-19] MEDS: FENTANYL CITRATE/PF 500 MCG in SODIUM CHLORIDE 0.9% 40 ML IV PRN ×2 (18:19→22:50)
[2018-07-19] MEDS: CEFAZOLIN 1000MG PREMIX 50 ML IV SCH (18:25)
[2018-07-19] MEDS: METOPROLOL TARTRATE 25MG TABLET NG SCH (21:00)
[2018-07-20] VITALS (95 sets, daily range): BP systolic 92–123; BP diastolic 47–75
[2018-07-20] MEDS: IPRATROPIUM/ALBUTEROL 0.5-3(2.5)MG/3ML NEB HHN SCH ×4 (01:47→20:43)
[2018-07-20] MEDS: HYDRALAZINE 20MG/ML VIAL IV SCH ×3 (05:34→16:58)
[2018-07-20] MEDS: LEVOTHYROXINE SODIUM 25MCG TABLET PO SCH (05:34)
[2018-07-20] MEDS: METOCLOPRAMIDE HCL 10MG/2ML VIAL IV SCH ×3 (05:38→18:02)
[2018-07-20 05:56] LABS: BASOPHILS % 0.8 % (0.0-2.0); EOSINOPHILS % 0.3 % (0.0-5.0); HEMATOCRIT. 26.2 % (42.0-52.0); HEMOGLOBIN. 8.7 g/dL (14.0-18.0); LYMPHOCYTES % 7.7 % (20.0-50.0); MEAN CORPUSCULAR HEMOGLOBIN 31.2 pg (28.0-32.0); MEAN CORPUSCULAR VOLUME 94.5 fL (80.0-94.0); MEAN PLATELET VOLUME 10.4 fl (7.4-10.4); MONOCYTES % 3.7 % (2.0-8.0); NEUTROPHILS % 87.5 % (40.0-76.0); PLATELET 120 x1000/uL (130-400); RED BLOOD CELL COUNT 2.78 mill/uL (4.7-6.1); RED CELL DISTRIBUTION WIDTH 19.4 % (11.6-14.6)
[2018-07-20] MEDS: METOPROLOL TARTRATE 25MG TABLET NG SCH ×2 (09:00→21:00)
[2018-07-20 09:03] LABS: BG BASE EXCESS -2.3 mmol/L (-2.0-2.0); BG CARBOXYHEMOGLOBIN 1.1 % (0.5-1.5); BG DEOXYHEMOGLOBIN 5.5 % (0.0-5.0); BG FRACTION INSPIRED OXYGEN 70; BG HCO3 ACT 22.4 mmol/L (22.0-26.0); BG METHEMOGLOBIN 0.3 % (0.0-1.5); BG OXYGEN SATURATION 94.4 % (92.0-98.5); BG OXYHEMOGLOBIN 93.1 % (94.0-97.0); BG PCO2 37.8 mmHg (35.0-45.0); BG PO2 76.2 mmHg (75.0-100.0); BG SAMPLE SITE RIGHT RADIAL; BG TIDAL VOLUME(mL) 500 mL; BG TOTAL HEMOGLOBIN 9.4 g/dL (12.0-18.0); BG VENT MODE VENT - A/C; BG VENT RATE 20 set
[2018-07-20] MEDS: PANTOPRAZOLE SODIUM 40 MG/VIAL IV SCH (09:32)
[2018-07-20] MEDS: FOLIC ACID/VITAMIN B COMP W-C TABLET PO SCH (09:32)
[2018-07-20] MEDS: MIDODRINE HCL 5MG TABLET PO SCH ×3 (09:32→16:52)
[2018-07-20] MEDS: QUETIAPINE FUMARATE 25MG TABLET PO SCH ×2 (09:32→20:54)
[2018-07-20] MEDS: DOCUSATE SODIUM SUGAR FREE 100MG/10ML UDC NG SCH (09:33)
[2018-07-20] MEDS: FENTANYL CITRATE/PF 500 MCG in SODIUM CHLORIDE 0.9% 40 ML IV PRN (14:25)
[2018-07-21] VITALS (103 sets, daily range): BP systolic 89–125; BP diastolic 40–81
[2018-07-21] MEDS: METOCLOPRAMIDE HCL 10MG/2ML VIAL IV SCH ×4 (00:19→17:26)
[2018-07-21] MEDS: IPRATROPIUM/ALBUTEROL 0.5-3(2.5)MG/3ML NEB HHN SCH ×4 (02:01→20:20)
[2018-07-21] MEDS: HYDRALAZINE 20MG/ML VIAL IV SCH ×4 (06:00→17:22)
[2018-07-21] MEDS: LEVOTHYROXINE SODIUM 25MCG TABLET PO SCH (06:23)
[2018-07-21] MEDS: PANTOPRAZOLE SODIUM 40 MG/VIAL IV SCH (09:00)
[2018-07-21] MEDS: METOPROLOL TARTRATE 25MG TABLET NG SCH ×2 (09:00→21:00)
[2018-07-21] MEDS: DOCUSATE SODIUM SUGAR FREE 100MG/10ML UDC NG SCH (09:00)
[2018-07-21] MEDS: QUETIAPINE FUMARATE 25MG TABLET PO SCH ×2 (09:00→21:39)
[2018-07-21] MEDS: FOLIC ACID/VITAMIN B COMP W-C TABLET PO SCH (09:00)
[2018-07-21] MEDS: MIDODRINE HCL 5MG TABLET PO SCH ×3 (09:05→17:22)
[2018-07-21 09:42] LABS: BASOPHILS % 0.6 % (0.0-2.0); EOSINOPHILS % 0.5 % (0.0-5.0); HEMATOCRIT. 31.9 % (42.0-52.0); HEMOGLOBIN. 10.4 g/dL (14.0-18.0); LYMPHOCYTES % 7.9 % (20.0-50.0); MEAN CORPUSCULAR HEMOGLOBIN 30.4 pg (28.0-32.0); MEAN CORPUSCULAR VOLUME 93.3 fL (80.0-94.0); MEAN PLATELET VOLUME 10.5 fl (7.4-10.4); MONOCYTES % 3.9 % (2.0-8.0); NEUTROPHILS % 87.1 % (40.0-76.0); PLATELET 107 x1000/uL (130-400); RED BLOOD CELL COUNT 3.42 mill/uL (4.7-6.1); RED CELL DISTRIBUTION WIDTH 18.3 % (11.6-14.6)
[2018-07-21] MEDS ORDERED: DEXT 5%/0.45% NACL 1000ML 1,000 ML IV SCH (11:15)
[2018-07-21] MEDS ORDERED: HEPARIN SODIUM 1,000 UNIT/1ML VIAL IV NR (12:00)
[2018-07-21] MEDS ORDERED: FENTANYL CITRATE/PF 50MCG/ML 2ML VIAL ONE (13:43)
[2018-07-21] MEDS ORDERED: MIDAZOLAM HCL 5 MG/5 ML VIAL ONE (13:43)
[2018-07-21] MEDS: DAPTOMYCIN IV SCH (13:49)
[2018-07-21] MEDS: SODIUM CHLORIDE 0.9% IV SCH (13:49)
[2018-07-21] MEDS: BISACODYL 5MG TABLET PO PRN (17:26)
[2018-07-22] VITALS (67 sets, daily range): BP systolic 79–138; BP diastolic 46–77
[2018-07-22] MEDS: IPRATROPIUM/ALBUTEROL 0.5-3(2.5)MG/3ML NEB HHN SCH ×4 (01:25→19:51)
[2018-07-22] MEDS: METOCLOPRAMIDE HCL 10MG/2ML VIAL IV SCH ×4 (02:28→18:05)
[2018-07-22] MEDS: HYDRALAZINE 20MG/ML VIAL IV SCH ×4 (06:00→18:00)
[2018-07-22] MEDS: LEVOTHYROXINE SODIUM 25MCG TABLET PO SCH (06:44)
[2018-07-22 06:47] LABS: BASOPHILS % 0.6 % (0.0-2.0); EOSINOPHILS % 0.4 % (0.0-5.0); HEMATOCRIT. 30.5 % (42.0-52.0); LYMPHOCYTES % 8.6 % (20.0-50.0); MEAN CORPUSCULAR HEMOGLOBIN 30.7 pg (28.0-32.0); MEAN PLATELET VOLUME 10.5 fl (7.4-10.4); MONOCYTES % 2.9 % (2.0-8.0); NEUTROPHILS % 87.5 % (40.0-76.0); PLATELET 87 x1000/uL (130-400); RED BLOOD CELL COUNT 3.24 mill/uL (4.7-6.1)
[2018-07-22] MEDS: MIDODRINE HCL 5MG TABLET PO SCH ×3 (09:00→18:06)
[2018-07-22] MEDS: PANTOPRAZOLE SODIUM 40 MG/VIAL IV SCH (09:01)
[2018-07-22] MEDS: DOCUSATE SODIUM SUGAR FREE 100MG/10ML UDC NG SCH (09:01)
[2018-07-22] MEDS: METOPROLOL TARTRATE 25MG TABLET NG SCH (09:02)
[2018-07-22] MEDS: QUETIAPINE FUMARATE 25MG TABLET PO SCH ×2 (09:02→20:21)
[2018-07-22] MEDS: FOLIC ACID/VITAMIN B COMP W-C TABLET PO SCH (09:02)
[2018-07-22 11:22] LABS: BG BASE EXCESS -3.8 mmol/L (-2.0-2.0); BG CARBOXYHEMOGLOBIN 0.7 % (0.5-1.5); BG FRACTION INSPIRED OXYGEN 80; BG HCO3 ACT 20.8 mmol/L (22.0-26.0); BG METHEMOGLOBIN 0.3 % (0.0-1.5); BG OXYGEN SATURATION 88.9 % (92.0-98.5); BG PCO2 35.7 mmHg (35.0-45.0); BG PH 7.383 (7.350-7.450); BG PO2 61.7 mmHg (75.0-100.0); BG SAMPLE SITE LEFT RADIAL; BG TIDAL VOLUME(mL) 450 mL; BG TOTAL HEMOGLOBIN 10.5 g/dL (12.0-18.0); BG VENT MODE VENT - A/C; BG VENT RATE 16 set
[2018-07-22] MEDS: BISACODYL 5MG TABLET PO PRN (11:51)
[2018-07-22] MEDS ORDERED: ALBUMIN HUMAN 25GM/500ML (5%) IV NR (12:30)
[2018-07-22] MEDS ORDERED: SODIUM CHLORIDE 0.9% 10ML VIAL ONE ×2 (15:32→15:35)
[2018-07-22] MEDS: LORAZEPAM 2MG/ML CPJ IV PRN (20:21)
[2018-07-22] MEDS ORDERED: METOPROLOL TARTRATE 25MG TABLET PEG SCH (21:00)
[2018-07-23] VITALS (78 sets, daily range): BP systolic 96–137; BP diastolic 59–115
[2018-07-23] MEDS: METOCLOPRAMIDE HCL 10MG/2ML VIAL IV SCH ×4 (00:18→17:58)
[2018-07-23] MEDS: IPRATROPIUM/ALBUTEROL 0.5-3(2.5)MG/3ML NEB HHN SCH ×4 (01:48→20:43)
[2018-07-23] MEDS: HYDRALAZINE 20MG/ML VIAL IV SCH ×4 (05:22→17:23)
[2018-07-23] MEDS: LEVOTHYROXINE SODIUM 25MCG TABLET PO SCH (05:25)
[2018-07-23 05:37] LABS: HEMATOCRIT. 31.1 % (42.0-52.0); HEMOGLOBIN. 10.1 g/dL (14.0-18.0); MEAN CORPUSCULAR HEMOGLOBIN 30.6 pg (28.0-32.0); MEAN CORPUSCULAR VOLUME 94.1 fL (80.0-94.0); MEAN PLATELET VOLUME 10.2 fl (7.4-10.4); PLATELET 85 x1000/uL (130-400); RED BLOOD CELL COUNT 3.31 mill/uL (4.7-6.1); RED CELL DISTRIBUTION WIDTH 18.4 % (11.6-14.6)
[2018-07-23] MEDS: PANTOPRAZOLE SODIUM 40 MG/VIAL IV SCH (09:28)
[2018-07-23] MEDS: DOCUSATE SODIUM SUGAR FREE 100MG/10ML UDC NG SCH (09:28)
[2018-07-23] MEDS: QUETIAPINE FUMARATE 25MG TABLET PO SCH ×2 (09:29→22:00)
[2018-07-23] MEDS: FOLIC ACID/VITAMIN B COMP W-C TABLET PO SCH (09:29)
[2018-07-23] MEDS: MIDODRINE HCL 5MG TABLET PO SCH ×3 (09:29→17:56)
[2018-07-23 09:47] LABS: BG CARBOXYHEMOGLOBIN 0.8 % (0.5-1.5); BG DEOXYHEMOGLOBIN 8.5 % (0.0-5.0); BG HCO3 ACT 19.3 mmol/L (22.0-26.0); BG METHEMOGLOBIN 0.5 % (0.0-1.5); BG OXYGEN SATURATION 91.4 % (92.0-98.5); BG OXYHEMOGLOBIN 90.2 % (94.0-97.0); BG PCO2 33.1 mmHg (35.0-45.0); BG PH 7.384 (7.350-7.450); BG PO2 65.8 mmHg (75.0-100.0); BG SAMPLE SITE RIGHT RADIAL; BG TIDAL VOLUME(mL) 500 mL; BG TOTAL HEMOGLOBIN 10.9 g/dL (12.0-18.0); BG VENT MODE VENT - A/C; BG VENT RATE 16 set
[2018-07-23 10:19] LABS: BG FRACTION INSPIRED OXYGEN 80
[2018-07-23 10:21] LABS: PLATELET ESTIMATE DECREASED
[2018-07-23] MEDS: BISACODYL 5MG TABLET PO PRN (17:56)
[2018-07-23] MEDS: DAPTOMYCIN IV SCH (17:58)
[2018-07-23] MEDS: SODIUM CHLORIDE 0.9% IV SCH (17:58)
[2018-07-24] VITALS: BP 105/59
[2018-07-24] MEDS: METOCLOPRAMIDE HCL 10MG/2ML VIAL IV SCH ×2 (01:00→06:00)
[2018-07-24] MEDS: HYDRALAZINE 20MG/ML VIAL IV SCH ×2 (01:00→06:00)
[2018-07-24 02:00] VITALS: BP 117/71
[2018-07-24] MEDS: IPRATROPIUM/ALBUTEROL 0.5-3(2.5)MG/3ML NEB HHN SCH ×2 (02:20→07:52)
[2018-07-24] MEDS: LORAZEPAM 2MG/ML CPJ IV PRN ×2 (02:22→09:43)
[2018-07-24 04:00] VITALS: BP 91/55
[2018-07-24 06:00] VITALS: BP 95/56
[2018-07-24] MEDS: LEVOTHYROXINE SODIUM 25MCG TABLET PO SCH (06:50)
[2018-07-24 07:28] LABS: HEMATOCRIT. 31.4 % (42.0-52.0); MEAN CORPUSCULAR VOLUME 97.8 fL (80.0-94.0); MEAN PLATELET VOLUME 11.3 fl (7.4-10.4); PLATELET 51 x1000/uL (130-400); RED BLOOD CELL COUNT 3.21 mill/uL (4.7-6.1); RED CELL DISTRIBUTION WIDTH 18.9 % (11.6-14.6)
[2018-07-24] MEDS ORDERED: LEVOTHYROXINE SODIUM 25MCG TABLET PO SCH (07:30)
[2018-07-24] MEDS: PANTOPRAZOLE SODIUM 40 MG/VIAL IV SCH (08:57)
[2018-07-24] MEDS: DOCUSATE SODIUM SUGAR FREE 100MG/10ML UDC NG SCH (08:58)
[2018-07-24] MEDS: MIDODRINE HCL 5MG TABLET PO SCH (08:59)
[2018-07-24] MEDS: FOLIC ACID/VITAMIN B COMP W-C TABLET PO SCH (08:59)
[2018-07-24] MEDS: QUETIAPINE FUMARATE 25MG TABLET PO SCH (09:01)
[2018-07-24] MEDS ORDERED: ACETAMINOPHEN 650MG/20.3ML UDC GT PRN (09:45)
[2018-07-24] MEDS ORDERED: LORAZEPAM 2MG/ML CPJ IV SCH ×2 (10:00→11:30)
[2018-07-24] MEDS ORDERED: MORPHINE SULFATE 4 MG/ML CPJ (NOT FOR IM USE) IV SCH (10:00)
[2018-07-24 10:05] LABS: BG BASE EXCESS -9.5 mmol/L (-2.0-2.0); BG CARBOXYHEMOGLOBIN 0.4 % (0.5-1.5); BG DEOXYHEMOGLOBIN 26.3 % (0.0-5.0); BG FRACTION INSPIRED OXYGEN 90; BG HCO3 ACT 14.7 mmol/L (22.0-26.0); BG METHEMOGLOBIN 0.4 % (0.0-1.5); BG OXYGEN SATURATION 73.5 % (92.0-98.5); BG OXYHEMOGLOBIN 72.9 % (94.0-97.0); BG PCO2 26.6 mmHg (35.0-45.0); BG PH 7.359 (7.350-7.450); BG PO2 45.5 mmHg (75.0-100.0); BG SAMPLE SITE RIGHT RADIAL; BG TIDAL VOLUME(mL) 500 mL; BG TOTAL HEMOGLOBIN 10.3 g/dL (12.0-18.0); BG VENT MODE VENT - A/C; BG VENT RATE 16 set
[2018-07-24] MEDS ORDERED: PROPOFOL 10MG/ML 100ML 100 ML IV PRN (11:30)
[2018-07-24 11:36] VITALS: BP 111/73
[2018-07-24 12:01] LABS: PLATELET ESTIMATE DECREASED
== END 2018-07-24 12:05 | disposition expired | DRG 4 ==
LOC: ER 21:10 → 3WST 06-23 02:54 → EDBEDREQ 06-23 02:59 → ENRESERV 06-23 13:30 → 3WST 06-29 00:46 → MICUSO 07-02 20:57 → 5EST 07-23 19:02
PROVIDERS: ADMIT Internal Medicine; ATTEND Internal Medicine
PROC: 5A1D70Z Performance of Urinary Filtration, Intermittent, Less than 6 Hours Per Day (ICD-10-PCS; 2018-06-23)
PROC: 5A1D70Z Performance of Urinary Filtration, Intermittent, Less than 6 Hours Per Day (ICD-10-PCS; 2018-06-24)
PROC: 5A1D70Z Performance of Urinary Filtration, Intermittent, Less than 6 Hours Per Day (ICD-10-PCS; 2018-06-25)
PROC: 06HY33Z Insertion of Infusion Device into Lower Vein, Percutaneous Approach (ICD-10-PCS; 2018-06-27)
PROC: 5A1D70Z Performance of Urinary Filtration, Intermittent, Less than 6 Hours Per Day (ICD-10-PCS; 2018-06-27)
PROC: 5A1D70Z Performance of Urinary Filtration, Intermittent, Less than 6 Hours Per Day (ICD-10-PCS; 2018-06-28)
PROC: 5A1D70Z Performance of Urinary Filtration, Intermittent, Less than 6 Hours Per Day (ICD-10-PCS; 2018-06-29)
PROC: 5A1D70Z Performance of Urinary Filtration, Intermittent, Less than 6 Hours Per Day (ICD-10-PCS; 2018-07-01)
PROC: 5A1955Z Respiratory Ventilation, Greater than 96 Consecutive Hours (ICD-10-PCS; principal; 2018-07-03)
PROC: 0BH18EZ Insertion of Endotracheal Airway into Trachea, Via Natural or Artificial Opening Endoscopic (ICD-10-PCS; 2018-07-03)
PROC: 5A1D70Z Performance of Urinary Filtration, Intermittent, Less than 6 Hours Per Day (ICD-10-PCS; 2018-07-03)
PROC: 5A1D70Z Performance of Urinary Filtration, Intermittent, Less than 6 Hours Per Day (ICD-10-PCS; 2018-07-05)
PROC: 0BH18EZ Insertion of Endotracheal Airway into Trachea, Via Natural or Artificial Opening Endoscopic (ICD-10-PCS; 2018-07-06)
PROC: 5A12012 Performance of Cardiac Output, Single, Manual (ICD-10-PCS; 2018-07-06)
PROC: 30233N1 Transfusion of Nonautologous Red Blood Cells into Peripheral Vein, Percutaneous Approach (ICD-10-PCS; 2018-07-07)
PROC: 5A1D70Z Performance of Urinary Filtration, Intermittent, Less than 6 Hours Per Day (ICD-10-PCS; 2018-07-07)
PROC: 5A1D70Z Performance of Urinary Filtration, Intermittent, Less than 6 Hours Per Day (ICD-10-PCS; 2018-07-09)
PROC: 5A1D70Z Performance of Urinary Filtration, Intermittent, Less than 6 Hours Per Day (ICD-10-PCS; 2018-07-11)
PROC: 5A1D70Z Performance of Urinary Filtration, Intermittent, Less than 6 Hours Per Day (ICD-10-PCS; 2018-07-12)
PROC: 5A1D70Z Performance of Urinary Filtration, Intermittent, Less than 6 Hours Per Day (ICD-10-PCS; 2018-07-14)
PROC: 05HY33Z Insertion of Infusion Device into Upper Vein, Percutaneous Approach (ICD-10-PCS; 2018-07-15)
PROC: 5A1D70Z Performance of Urinary Filtration, Intermittent, Less than 6 Hours Per Day (ICD-10-PCS; 2018-07-16)
PROC: 30233R1 Transfusion of Nonautologous Platelets into Peripheral Vein, Percutaneous Approach (ICD-10-PCS; 2018-07-19)
PROC: 5A1D70Z Performance of Urinary Filtration, Intermittent, Less than 6 Hours Per Day (ICD-10-PCS; 2018-07-19)
PROC: 0B110F4 Bypass Trachea to Cutaneous with Tracheostomy Device, Open Approach (ICD-10-PCS; 2018-07-20)
PROC: 0GBJ0ZZ Excision of Thyroid Gland Isthmus, Open Approach (ICD-10-PCS; 2018-07-20)
PROC: 0DH63UZ Insertion of Feeding Device into Stomach, Percutaneous Approach (ICD-10-PCS; 2018-07-21)
PROC: 5A1D70Z Performance of Urinary Filtration, Intermittent, Less than 6 Hours Per Day (ICD-10-PCS; 2018-07-21)
PROC: 5A1D70Z Performance of Urinary Filtration, Intermittent, Less than 6 Hours Per Day (ICD-10-PCS; 2018-07-24)
DX: T82.7XXA Infection and inflammatory reaction due to other cardiac and vascular devices, implants and grafts, initial encounter (principal); A41.02 Sepsis due to Methicillin resistant Staphylococcus aureus; D65 Disseminated intravascular coagulation [defibrination syndrome]; I21.4 Non-ST elevation (NSTEMI) myocardial infarction; E43 Unspecified severe protein-calorie malnutrition; I26.90 Septic pulmonary embolism without acute cor pulmonale; I33.0 Acute and subacute infective endocarditis; R64 Cachexia; D61.818 Other pancytopenia; K29.61 Other gastritis with bleeding; J96.01 Acute respiratory failure with hypoxia; G92 Toxic encephalopathy; B20 Human immunodeficiency virus [HIV] disease; N18.6 End stage renal disease; J96.02 Acute respiratory failure with hypercapnia; I13.2 Hypertensive heart and chronic kidney disease with heart failure and with stage 5 chronic kidney disease, or end stage renal disease; E87.2 Acidosis; E87.5 Hyperkalemia; Z99.2 Dependence on renal dialysis; J44.1 Chronic obstructive pulmonary disease with (acute) exacerbation; B19.20 Unspecified viral hepatitis C without hepatic coma; E03.9 Hypothyroidism, unspecified; E87.1 Hypo-osmolality and hyponatremia; F17.210 Nicotine dependence, cigarettes, uncomplicated; I25.10 Atherosclerotic heart disease of native coronary artery without angina pectoris; J15.0 Pneumonia due to Klebsiella pneumoniae; J44.0 Chronic obstructive pulmonary disease with (acute) lower respiratory infection; K56.41 Fecal impaction; K56.7 Ileus, unspecified; K80.20 Calculus of gallbladder without cholecystitis without obstruction; R62.7 Adult failure to thrive; Z68.24 Body mass index [BMI] 24.0-24.9, adult; R65.21 Severe sepsis with septic shock; Y95 Nosocomial condition; Z66 Do not resuscitate; K44.9 Diaphragmatic hernia without obstruction or gangrene; F14.10 Cocaine abuse, uncomplicated; I27.20 Pulmonary hypertension, unspecified; R16.0 Hepatomegaly, not elsewhere classified; S09.8XXA Other specified injuries of head, initial encounter; R26.89 Other abnormalities of gait and mobility; S30.820A Blister (nonthermal) of lower back and pelvis, initial encounter; X58.XXXA Exposure to other specified factors, initial encounter; Y84.6 Urinary catheterization as the cause of abnormal reaction of the patient, or of later complication, without mention of misadventure at the time of the procedure; E87.70 Fluid overload, unspecified; Z53.29 Procedure and treatment not carried out because of patient's decision for other reasons; I34.0 Nonrheumatic mitral (valve) insufficiency; E16.2 Hypoglycemia, unspecified; K30 Functional dyspepsia; F19.90 Other psychoactive substance use, unspecified, uncomplicated; I50.40 Unspecified combined systolic (congestive) and diastolic (congestive) heart failure; I63.441 Cerebral infarction due to embolism of right cerebellar artery; K76.0 Fatty (change of) liver, not elsewhere classified; M47.896 Other spondylosis, lumbar region; M48.061 Spinal stenosis, lumbar region without neurogenic claudication; Z78.1 Physical restraint status; Y92.89 Other specified places as the place of occurrence of the external cause; Z82.49 Family history of ischemic heart disease and other diseases of the circulatory system; Z91.15 Patient's noncompliance with renal dialysis; Z91.19 Patient's noncompliance with other medical treatment and regimen; Z99.11 Dependence on respirator [ventilator] status; Y93.89 Activity, other specified; Y99.8 Other external cause status; Z71.89 Other specified counseling
CPT/HCPCS: 36415; 36556; 36569; 36589; 36600; 70551; 71045; 71250; 72148; 74018; 74176; 76700; 76937; 80048; 80061; 80076; 80202; 80305; 82140; 82270; 82375; 82533; 82550; 82553; 82607; 82746; 82805; 82962; 83036; 83615; 83735; 83880; 83930; 84100; 84132; 84134; 84145; 84439; 84443; 84478; 84481; 84484; 85379; 86359; 86360; 86705; 86709; 86803; 86850; 86900; 86920; 86945; 87070; 87077; 87186; 87340; 92610; 92950; 93005; 93306; 93880; 93970; 94003; 94640; 94660; 97162; 97530; 99285; A4216; A6261; C1725; C1752; C9113; G0482; J0330; J0360; J0610; J0690; J0878; J1644; J1815; J2060; J2250; J2270; J2370; J2704; J2765; J2997; J3010; J3370; J3490; J7030; J7040; J7050; J7060; J7611; J7620; J7626; P9016; P9034; P9041